=== PATIENT | female | born 1965 | race Caucasian/White ===

== ENCOUNTER 2016-12-18 13:31 | Observation (INO) | payer OTHER ==
[~2016-12-18] VITALS: Ht 157.5 cm; Wt 79.0 kg
[~2016-12-18 13:31] MED LIST: EXCEDRIN MIGRAINE PO; NITR1CAP33 PO
[2016-12-18] MEDS ORDERED: ONDANSETRON INJ 2 MG/ML 2 ML VIAL IV STA ×2 (14:07→17:09)
[2016-12-18] MEDS ORDERED: MoRPHine SULFATE 4 MG/ML 1 ML CARP\\VIAL IV STA (14:07)
[2016-12-18] MEDS ORDERED: OPTIRAY 320 IV PRN (14:30)
[2016-12-18 15:16] LABS: ISTAT CREATININE 0.8 mg/dl (0.6-1.3); ISTAT HEMOGLOBIN 13.6 g/dl (12.0-16.0); ISTAT IONIZED CALCIUM 1.1 mmol/l (1.12-1.32)
--- NOTE | 2016-12-18 15:29 | EMERGENCY ROOM VISIT NOTE ---
History First contact with patient: 13:59 Chief Complaint: FALL Stated Complaint: FALL History of Present Illness The patient is a 51 year old female who presents to the Emergency Room with complaints of "fall". The patient states that 1.5 hours prior to arrival, she was at a gas station attempting to pump gas, when she turned around and tripped on the cement, and fell against the car and in the pavement. There was positive loss of consciousness as identified by her family member. Ambulance was called, she was placed in a c-collar and brought here for evaluation. She notes pain in the right side of her face, jaw, right shoulder, right hip, and her low back. There is also right anterior chest pain following the injury. The patient rates her overall pain as an 8/10. She is unsure if she received pain medication in the ambulance. She denies chance of . Review of Systems A complete 10-point Review of Systems was discussed with the patient, with pertinent positives and negatives listed in the History of Present Illness. All remaining Review of Systems questions can be considered negative unless otherwise specified. Past Medical/Surgical History Medical Problems: (1) Chest pain (2) Neurogenic bladder No pertinent at this time. Family History No pertinent. Social History Smoking Status: Never Smoker Pt. lives locally Current/Historical Medications No Active Prescriptions or Reported Meds Physical Exam Vital Signs Date Time Temp Pulse Resp B/P (MAP) Pulse Ox O2 Delivery O2 Flow Rate FiO2 12/18/16 17:28 82 157/91 96 Room Air 12/18/16 16:01 85 20 173/104 95 Room Air 12/18/16 14:17 79 18 188/95 97 Room Air 12/18/16 13:41 81 12/18/16 13:34 37.0 90 18 204/118 98 Room Air 192/109 Physical Exam VITAL SIGNS - Vital signs and nursing notes were reviewed. Stable. GENERAL -51-year-old female appearing her stated age. Communicates well with provider and answers questions appropriately. SKIN - Gross examination of the entire body surface demonstrates no lacerations to the body surface. HEAD - Normocephalic, Atraumatic. No Zamora's Sign or Raccoon's Eyes. No depressed skull fractures palpable. EYES - PERRL with EOMI bilaterally. Without subconjunctival hemorrhage. Bulbar conjunctiva pink and moist with no injection. No hyphema. EARS - No deformities of external structures noted on gross examination bilaterally. No hemotympanum present. No tympanic perforation noted. Handle of malleus, umbo, cone of light, pars tensa/flaccid all easily visualized. NOSE - Midline and without cyanosis. No epistaxis or clear watery discharge noted. Septum midline without deviation. No septal hematoma noted. No overlying ecchymosis noted. MOUTH/OROPHARYNX - Without perioral cyanosis. Tongue midline with equal elevation of palate bilaterally. No blood noted in the oropharynx. No tonsillar hypertrophy, erythema, or exudates noted. No dental fractures noted. NECK - Cervical collar in place. No identifiable tenderness to palpation over the cervical spinous processes. No identifiable cervical paraspinal muscle tenderness noted. LUNGS - Chest wall symmetric without accessory muscle use, intercostals retractions, or central cyanosis. []No flail chest or depressed fractures noted. No paradoxical chest wall movements noted. There is tenderness to palpation across the anterior and posterior chest martin on the right. No tenderness with deep inspiration noted against the examiner's applied pressure to the lateral chest martin. Normal vesicular breath sounds CTA B/L. No wheezes, rales, or rhonchi appreciated. CARDIAC - RRR with S1/S2. No murmur, rubs, or gallops appreciated. ABDOMEN - Abdominal contour normal and without pulsations or visible masses. BS normoactive all four quadrants. No rebound tenderness or guarding noted. Negative Wickes's or Christiansen Winter's Signs. There is retroperitoneal tenderness. No tenderness, palpable masses, hepatosplenomegaly, or ascites noted. EXTREMITIES - No gross deformities noted of the extremities. There is tenderness to palpation overlying the patient's right shoulder, right posterior thoracic region, right side of her face, and right hip region. She is neurovascularly intact in the extremities. FROM with no tremors, fasciculations , or clonus noted on PROM throughout. +5/5 strength noted in UE/LE bilaterally. NEUROLOGIC - Cranial nerves II through XII grossly intact. Sensory intact to light touch throughout. PSYCH - A&Ox3 and cooperates fully with examiner. Pt is very pleasant and interacts well with examiner. Medical Decision & Procedures ER Provider Diagnostic Interpretation: HEAD WITHOUT CONTRAST (CT) CT DOSE: HISTORY: Trauma Fall, +LOC, head, face, neck and back pain TECHNIQUE: Multiaxial CT images of the head were performed without the use of intravenous contrast. A dose lowering technique was utilized adhering to the principles of ALARA. Comparison: None. Findings: The paranasal sinuses and mastoid air cells are clear. The calvarium and skull base are intact. The ventricles and sulci are within normal limits. There is no mass, hematoma, midline shift, or acute infarct. Impression: No acute intracranial abnormality. The above report was generated using voice recognition software. It may contain grammatical, syntax or spelling errors. Electronically signed by: Isidro Mansfield M.D. 12/18/2016 3:55 PM Dictated Date/Time: 12/18/2016 3:54 PM CERVICAL SPINE W/O CT DOSE: 2099.24 mGy.cm HISTORY: Trauma Fall, +LOC, head, face, neck and back pain TECHNIQUE: Multiaxial CT images of the cervical spine were performed and reformatted in the sagittal and coronal plane without the use of contrast. A dose lowering technique was utilized adhering to the principles of ALARA. COMPARISON: None. FINDINGS: Mild degenerative disc changes throughout. No evidence for compression deformity. Posterior elements are intact. No evidence for subluxation. C1-C2 complex is intact. IMPRESSION: No acute process. Mild degenerative change. The above report was generated using voice recognition software. It may contain grammatical, syntax or spelling errors. Electronically signed by: Isidro Mansfield M.D. 12/18/2016 3:50 PM Dictated Date/Time: 12/18/2016 3:[address] DOSE: HISTORY: Fall, +LOC, head, face, neck and back pain TECHNIQUE: Multiaxial CT images of the maxillofacial region were performed and reformatted in the coronal plane without the use of contrast. A dose lowering technique was utilized adhering to the principles of ALARA. COMPARISON: None. FINDINGS: The visualized cervical spine, skull base, pterygoid plates, nasal bones, lamina papyracea, orbital floors, mandible, and zygomatic arches are intact. No fractures. The orbits are unremarkable. Soft tissue swelling/contusion at the chin. IMPRESSION: No fractures within the maxillofacial region. Soft tissue swelling/contusion at the chin. Electronically signed by: Conor Arcos M.D. 12/18/2016 4:04 PM Dictated Date/Time: 12/18/2016 4:00 PM THORACIC SPINE WITHOUT CT DOSE: HISTORY: Trauma Fall, +LOC, head, face, neck and back pain TECHNIQUE: Multiaxial CT images of the thoracic spine were performed and reformatted in the sagittal and coronal plane without the use of contrast. A dose lowering technique was utilized adhering to the principles of ALARA. COMPARISON: None. FINDINGS: No fractures. No subluxation. Paraspinal soft tissues are unremarkable. Moderate degenerative disc change throughout. Mild reactive osteophytic change throughout. IMPRESSION: No acute process. The above report was generated using voice recognition software. It may contain grammatical, syntax or spelling errors. Electronically signed by: Isidro Mansfield M.D. 12/18/2016 4:02 PM Dictated Date/Time: 12/18/2016 4:[address] WITH CONTRAST CT DOSE: HISTORY: Trauma. Fall, +LOC, head, face, neck and back pain TECHNIQUE: Multiaxial CT images of the chest were performed following the intravenous administration of contrast. A dose lowering technique was utilized adhering to the principles of ALARA. COMPARISON: None. FINDINGS: The central airways are patent. The lungs are clear. No pleural effusions. No pneumothorax. No definite fractures within the visualized osseous structures. Mild irregularity at the anterior cortex of the manubrium. No mediastinal or hilar lymphadenopathy. The heart is normal in size. The mediastinal vascular structures are within normal limits. IMPRESSION: No definite acute traumatic process within the chest. Moderate irregularity at the anterior cortex of the manubrium. Recommend correlation for pain at this location to exclude the less likely possibility of a subtle nondisplaced fracture. There is no surrounding soft tissue swelling or hemorrhage to suggest an acute injury at this time. Electronically signed by: Conor Arcos M.D. 12/18/2016 4:00 PM Dictated Date/Time: 12/18/2016 3:53 PM LUMBAR SPINE WITHOUT CT DOSE: HISTORY: Trauma Fall, +LOC, head, face, neck and back pain TECHNIQUE: Multiaxial CT images of the lumbar spine were performed and reformatted in the sagittal and coronal plane without the use of contrast. A dose lowering technique was utilized adhering to the principles of ALARA. COMPARISON: None. FINDINGS: No fractures. No subluxation. Paraspinal soft tissues are unremarkable. Minimal degenerative disc change IMPRESSION: No fractures within the lumbar spine. Minimal degenerative change The above report was generated using voice recognition software. It may contain grammatical, syntax or spelling errors. Electronically signed by: Isidro Mansfield M.D. 12/18/2016 4:01 PM Dictated Date/Time: 12/18/2016 4:00 PM ABD/PELVIS IV CONTRAST ONLY CT DOSE: HISTORY: Pain. Trauma. Fall, +LOC, head, face, neck and back pain, hip pain TECHNIQUE: Multiaxial CT images of the abdomen and pelvis were performed following the use of intravenous contrast. A dose lowering technique was utilized adhering to the principles of ALARA. COMPARISON STUDY: None. FINDINGS: The lung bases are clear. The liver, spleen, gallbladder, pancreas, kidneys, and adrenal glands are within normal limits. No bowel wall thickening or obstruction. The pelvic organs are unremarkable. No suspicious lytic or blastic osseous lesions. IMPRESSION: No significant abnormality identified within the abdomen or pelvis. The above report was generated using voice recognition software. It may contain grammatical, syntax or spelling errors. Electronically signed by: Isidro Mansfield M.D. 12/18/2016 3:53 PM Dictated Date/Time: 12/18/2016 3:51 PM RIGHT HIP 2 VIEWS CLINICAL HISTORY: Right hip pain status post trauma COMPARISON: None. DISCUSSION: No fractures or dislocations are visualized. IMPRESSION: No fractures identified. Electronically signed by: Dileep Aranda M.D. 12/18/2016 5:04 PM Dictated Date/Time: 12/18/2016 5:04 PM Laboratory Results Test 12/18/16 15:02 Bedside Hemoglobin 13.6 g/dl (12.0-16.0) Bedside Hematocrit 40 % (37-47) Bedside Sodium 142 mEq/L (135-144) Bedside Potassium 3.9 mEq/L (3.3-5.0) Bedside Chloride 103 mEq/L (101-112) Bedside Total CO2 27 mEq/l (24-31) Bedside Blood Urea Nitrogen 18 mg/dl (7-18) Bedside Creatinine 0.8 mg/dl (0.6-1.3) Bedside Glucose (other) 94 mg/dl (70-99) Bedside Ionized Calcium (Christopher) 1.10 mmol/l (1.12-1.32) Medications Administered Medications (Trade) Dose Ordered Sig/Iona Route Start Time Stop Time Status Last Admin Dose Admin Morphine Sulfate (MoRPHine SULFATE INJ) 4 mg NOW STAT IV 12/18/16 14:07 12/18/16 14:11 DC 12/18/16 14:16 4 MG Ondansetron HCl (Zofran Inj) 4 mg NOW STAT IV 12/18/16 14:07 12/18/16 14:11 DC 12/18/16 14:16 4 MG Hydromorphone HCl (Dilaudid Inj) 1 mg NOW STAT IV 12/18/16 15:50 12/18/16 15:51 DC 12/18/16 15:59 1 MG Ondansetron HCl (Zofran Inj) 4 mg NOW STAT IV 12/18/16 17:09 12/18/16 17:10 DC 12/18/16 17:25 4 MG Promethazine HCl 12.5 mg/Sodium Chloride 50.5 ml @ 204 mls/hr NOW STAT IV 12/18/16 17:44 12/18/16 17:58 DC 12/18/16 18:21 204 MLS/HR Medical Decision Patient was seen and evaluated as above. She presents to us today with pain diffusely status post fall. Bedside EKG was obtained and reveals normal sinus rhythm. No ectopy or ischemic change. The patient notes that she tripped on the cement, therefore believe she likely had a mechanical fall. She has tenderness of the right jaw, right posterior shoulder/neck area, and low back. There is also some minimal chest tenderness, and breast bone tenderness. She was given morphine 4 mg for her pain followed by Zofran. I-STAT reveals no acute process. CBC reveals no acute process. Metabolic panel rules no evidence of kidney or liver failure. Benefits versus risk of obtaining imaging was discussed with the patient. Decision was made to obtain CTs and x-ray. Results as above. I was called by CT, the decision was made to add an abdomen and pelvis, rather than just the reconstructed images to see the patient from radiation. I believe that this is appropriate. No acute process noted other than she does have what appears to be questionable manubrial fracture. She is in quite a bit of pain, therefore was given 1 more milligram of Dilaudid. She was offered outpatient management versus inpatient, and preferred to stay for pain management. She is also vomiting. She was given more Zofran, followed by Phenergan and continues to vomit. This is likely secondary to her pain. Her vital signs have been stable here. I do not suspect any emergent process. Case was discussed with the attending physician, and subsequently the hospitalist. Please refer to further documentation regarding her stay. In evaluation and treatment of this patient the following differential diagnoses were entertained: Mechanical fall, fractures of multiple sites, contusion and multiple sites, among others. Impression Primary Impression: Fall Additional Impressions: Contusion of multiple sites Fracture of manubrium Departure Information Dispostion Admitted as an inpatient Condition FAIR Prescriptions No Active Prescriptions or Reported Meds Referrals No Doctor, Assigned (PCP) Patient Instructions [facility] Additional Instructions HEAD WITHOUT CONTRAST (CT) CT DOSE: HISTORY: Trauma Fall, +LOC, head, face, neck and back pain TECHNIQUE: Multiaxial CT images of the head were performed without the use of intravenous contrast. A dose lowering technique was utilized adhering to the principles of ALARA. Comparison: None. Findings: The paranasal sinuses and mastoid air cells are clear. The calvarium and skull base are intact. The ventricles and sulci are within normal limits. There is no mass, hematoma, midline shift, or acute infarct. Impression: No acute intracranial abnormality. The above report was generated using voice recognition software. It may contain grammatical, syntax or spelling errors. Electronically signed by: Isidro Mansfield M.D. 12/18/2016 3:55 PM Dictated Date/Time: 12/18/2016 3:54 PM CERVICAL SPINE W/O CT DOSE: 2099.24 mGy.cm HISTORY: Trauma Fall, +LOC, head, face, neck and back pain TECHNIQUE: Multiaxial CT images of the cervical spine were performed and reformatted in the sagittal and coronal plane without the use of contrast. A dose lowering technique was utilized adhering to the principles of ALARA. COMPARISON: None. FINDINGS: Mild degenerative disc changes throughout. No evidence for compression deformity. Posterior elements are intact. No evidence for subluxation. C1-C2 complex is intact. IMPRESSION: No acute process. Mild degenerative change. The above report was generated using voice recognition software. It may contain grammatical, syntax or spelling errors. Electronically signed by: Isidro Mansfield M.D. 12/18/2016 3:50 PM Dictated Date/Time: 12/18/2016 3:[address] DOSE: HISTORY: Fall, +LOC, head, face, neck and back pain TECHNIQUE: Multiaxial CT images of the maxillofacial region were performed and reformatted in the coronal plane without the use of contrast. A dose lowering technique was utilized adhering to the principles of ALARA. COMPARISON: None. FINDINGS: The visualized cervical spine, skull base, pterygoid plates, nasal bones, lamina papyracea, orbital floors, mandible, and zygomatic arches are intact. No fractures. The orbits are unremarkable. Soft tissue swelling/contusion at the chin. IMPRESSION: No fractures within the maxillofacial region. Soft tissue swelling/contusion at the chin. Electronically signed by: Conor Arcos M.D. 12/18/2016 4:04 PM Dictated Date/Time: 12/18/2016 4:00 PM THORACIC SPINE WITHOUT CT DOSE: HISTORY: Trauma Fall, +LOC, head, face, neck and back pain TECHNIQUE: Multiaxial CT images of the thoracic spine were performed and reformatted in the sagittal and coronal plane without the use of contrast. A dose lowering technique was utilized adhering to the principles of ALARA. COMPARISON: None. FINDINGS: No fractures. No subluxation. Paraspinal soft tissues are unremarkable. Moderate degenerative disc change throughout. Mild reactive osteophytic change throughout. IMPRESSION: No acute process. The above report was generated using voice recognition software. It may contain grammatical, syntax or spelling errors. Electronically signed by: Isidro Mansfield M.D. 12/18/2016 4:02 PM Dictated Date/Time: 12/18/2016 4:[address] WITH [address]AST CT DOSE: HISTORY: Trauma. Fall, +LOC, head, face, neck and back pain TECHNIQUE: Multiaxial CT images of the chest were performed following the intravenous administration of contrast. A dose lowering technique was utilized adhering to the principles of ALARA. COMPARISON: None. FINDINGS: The central airways are patent. The lungs are clear. No pleural effusions. No pneumothorax. No definite fractures within the visualized osseous structures. Mild irregularity at the anterior cortex of the manubrium. No mediastinal or hilar lymphadenopathy. The heart is normal in size. The mediastinal vascular structures are within normal limits. IMPRESSION: No definite acute traumatic process within the chest. Moderate irregularity at the anterior cortex of the manubrium. Recommend correlation for pain at this location to exclude the less likely possibility of a subtle nondisplaced fracture. There is no surrounding soft tissue swelling or hemorrhage to suggest an acute injury at this time. Electronically signed by: Conor Arcos M.D. 12/18/2016 4:00 PM Dictated Date/Time: 12/18/2016 3:53 PM LUMBAR SPINE WITHOUT CT DOSE: HISTORY: Trauma Fall, +LOC, head, face, neck and back pain TECHNIQUE: Multiaxial CT images of the lumbar spine were performed and reformatted in the sagittal and coronal plane without the use of contrast. A dose lowering technique was utilized adhering to the principles of ALARA. COMPARISON: None. FINDINGS: No fractures. No subluxation. Paraspinal soft tissues are unremarkable. Minimal degenerative disc change IMPRESSION: No fractures within the lumbar spine. Minimal degenerative change The above report was generated using voice recognition software. It may contain grammatical, syntax or spelling errors. Electronically signed by: Isidro Mansfield M.D. 12/18/2016 4:01 PM Dictated Date/Time: 12/18/2016 4:00 PM ABD/PELVIS IV CONTRAST ONLY CT DOSE: HISTORY: Pain. Trauma. Fall, +LOC, head, face, neck and back pain, hip pain TECHNIQUE: Multiaxial CT images of the abdomen and pelvis were performed following the use of intravenous contrast. A dose lowering technique was utilized adhering to the principles of ALARA. COMPARISON STUDY: None. FINDINGS: The lung bases are clear. The liver, spleen, gallbladder, pancreas, kidneys, and adrenal glands are within normal limits. No bowel wall thickening or obstruction. The pelvic organs are unremarkable. No suspicious lytic or blastic osseous lesions. IMPRESSION: No significant abnormality identified within the abdomen or pelvis. The above report was generated using voice recognition software. It may contain grammatical, syntax or spelling errors. Electronically signed by: Isidro Mansfield M.D. 12/18/2016 3:53 PM Dictated Date/Time: 12/18/2016 3:51 PM RIGHT HIP 2 VIEWS CLINICAL HISTORY: Right hip pain status post trauma COMPARISON: None. DISCUSSION: No fractures or dislocations are visualized. IMPRESSION: No fractures identified. Electronically signed by: Dileep Aranda M.D. 12/18/2016 5:04 PM Dictated Date/Time: 12/18/2016 5:04 PM Problem Qualifiers
[2016-12-18] MEDS ORDERED: HYDROmorphone INJ 1 MG/ML SYR IV STA (15:50)
--- NOTE | 2016-12-18 15:51 | DIAGNOSTIC IMAGING REPORT ---
CERVICAL SPINE W/O CT DOSE: 2099.24 mGy.cm HISTORY: Trauma Fall, +LOC, head, face, neck and back pain TECHNIQUE: Multiaxial CT images of the cervical spine were performed and reformatted in the sagittal and coronal plane without the use of contrast. A dose lowering technique was utilized adhering to the principles of ALARA. COMPARISON: None. FINDINGS: Mild degenerative disc changes throughout. No evidence for compression deformity. Posterior elements are intact. No evidence for subluxation. C1-C2 complex is intact. IMPRESSION: No acute process. Mild degenerative change. The above report was generated using voice recognition software. It may contain grammatical, syntax or spelling errors. Electronically signed by: Isidro Mansfield M.D. 12/18/2016 3:50 PM Dictated Date/Time: 12/18/2016 3:48 PM
--- NOTE | 2016-12-18 15:55 | DIAGNOSTIC IMAGING REPORT ---
ABD/PELVIS IV CONTRAST ONLY CT DOSE: HISTORY: Pain. Trauma. Fall, +LOC, head, face, neck and back pain, hip pain TECHNIQUE: Multiaxial CT images of the abdomen and pelvis were performed following the use of intravenous contrast. A dose lowering technique was utilized adhering to the principles of ALARA. COMPARISON STUDY: None. FINDINGS: The lung bases are clear. The liver, spleen, gallbladder, pancreas, kidneys, and adrenal glands are within normal limits. No bowel wall thickening or obstruction. The pelvic organs are unremarkable. No suspicious lytic or blastic osseous lesions. IMPRESSION: No significant abnormality identified within the abdomen or pelvis. The above report was generated using voice recognition software. It may contain grammatical, syntax or spelling errors. Electronically signed by: Isidro Mansfield M.D. 12/18/2016 3:53 PM Dictated Date/Time: 12/18/2016 3:51 PM
--- NOTE | 2016-12-18 15:56 | DIAGNOSTIC IMAGING REPORT ---
HEAD WITHOUT CONTRAST (CT) CT DOSE: HISTORY: Trauma Fall, +LOC, head, face, neck and back pain TECHNIQUE: Multiaxial CT images of the head were performed without the use of intravenous contrast. A dose lowering technique was utilized adhering to the principles of ALARA. Comparison: None. Findings: The paranasal sinuses and mastoid air cells are clear. The calvarium and skull base are intact. The ventricles and sulci are within normal limits. There is no mass, hematoma, midline shift, or acute infarct. Impression: No acute intracranial abnormality. The above report was generated using voice recognition software. It may contain grammatical, syntax or spelling errors. Electronically signed by: Isidro Mansfield M.D. 12/18/2016 3:55 PM Dictated Date/Time: 12/18/2016 3:54 PM
--- NOTE | 2016-12-18 16:01 | DIAGNOSTIC IMAGING REPORT ---
CHEST CT WITH CONTRAST CT DOSE: HISTORY: Trauma. Fall, +LOC, head, face, neck and back pain TECHNIQUE: Multiaxial CT images of the chest were performed following the intravenous administration of contrast. A dose lowering technique was utilized adhering to the principles of ALARA. COMPARISON: None. FINDINGS: The central airways are patent. The lungs are clear. No pleural effusions. No pneumothorax. No definite fractures within the visualized osseous structures. Mild irregularity at the anterior cortex of the manubrium. No mediastinal or hilar lymphadenopathy. The heart is normal in size. The mediastinal vascular structures are within normal limits. IMPRESSION: No definite acute traumatic process within the chest. Moderate irregularity at the anterior cortex of the manubrium. Recommend correlation for pain at this location to exclude the less likely possibility of a subtle nondisplaced fracture. There is no surrounding soft tissue swelling or hemorrhage to suggest an acute injury at this time. Electronically signed by: Conor Arcos M.D. 12/18/2016 4:00 PM Dictated Date/Time: 12/18/2016 3:53 PM
--- NOTE | 2016-12-18 16:02 | DIAGNOSTIC IMAGING REPORT ---
LUMBAR SPINE WITHOUT CT DOSE: HISTORY: Trauma Fall, +LOC, head, face, neck and back pain TECHNIQUE: Multiaxial CT images of the lumbar spine were performed and reformatted in the sagittal and coronal plane without the use of contrast. A dose lowering technique was utilized adhering to the principles of ALARA. COMPARISON: None. FINDINGS: No fractures. No subluxation. Paraspinal soft tissues are unremarkable. Minimal degenerative disc change IMPRESSION: No fractures within the lumbar spine. Minimal degenerative change The above report was generated using voice recognition software. It may contain grammatical, syntax or spelling errors. Electronically signed by: Isidro Mansfield M.D. 12/18/2016 4:01 PM Dictated Date/Time: 12/18/2016 4:00 PM
--- NOTE | 2016-12-18 16:04 | DIAGNOSTIC IMAGING REPORT ---
THORACIC SPINE WITHOUT CT DOSE: HISTORY: Trauma Fall, +LOC, head, face, neck and back pain TECHNIQUE: Multiaxial CT images of the thoracic spine were performed and reformatted in the sagittal and coronal plane without the use of contrast. A dose lowering technique was utilized adhering to the principles of ALARA. COMPARISON: None. FINDINGS: No fractures. No subluxation. Paraspinal soft tissues are unremarkable. Moderate degenerative disc change throughout. Mild reactive osteophytic change throughout. IMPRESSION: No acute process. The above report was generated using voice recognition software. It may contain grammatical, syntax or spelling errors. Electronically signed by: Isidro Mansfield M.D. 12/18/2016 4:02 PM Dictated Date/Time: 12/18/2016 4:01 PM
--- NOTE | 2016-12-18 16:06 | DIAGNOSTIC IMAGING REPORT ---
MAXILLOFACIAL CT CT DOSE: HISTORY: Fall, +LOC, head, face, neck and back pain TECHNIQUE: Multiaxial CT images of the maxillofacial region were performed and reformatted in the coronal plane without the use of contrast. A dose lowering technique was utilized adhering to the principles of ALARA. COMPARISON: None. FINDINGS: The visualized cervical spine, skull base, pterygoid plates, nasal bones, lamina papyracea, orbital floors, mandible, and zygomatic arches are intact. No fractures. The orbits are unremarkable. Soft tissue swelling/contusion at the chin. IMPRESSION: No fractures within the maxillofacial region. Soft tissue swelling/contusion at the chin. Electronically signed by: Conor Arcos M.D. 12/18/2016 4:04 PM Dictated Date/Time: 12/18/2016 4:00 PM
--- NOTE | 2016-12-18 17:06 | DIAGNOSTIC IMAGING REPORT ---
RIGHT HIP 2 VIEWS CLINICAL HISTORY: Right hip pain status post trauma COMPARISON: None. DISCUSSION: No fractures or dislocations are visualized. IMPRESSION: No fractures identified. Electronically signed by: Dileep Aranda M.D. 12/18/2016 5:04 PM Dictated Date/Time: 12/18/2016 5:04 PM
[2016-12-18] MEDS ORDERED: PROMETHAZINE HCL INJ 12.5 MG in SODIUM CHLORIDE 0.9% 50ML 50 ML IV STA (17:44)
[2016-12-18] MEDS ORDERED: SODIUM CHLORIDE 0.9% 1000ML 1,000 ML IV SCH (18:29)
[2016-12-18] MEDS ORDERED: ACETAMINOPHEN 325 MG TAB PO PRN (18:30)
[2016-12-18] MEDS ORDERED: ONDANSETRON INJ 2 MG/ML 2 ML VIAL IV PRN (18:30)
[2016-12-18] MEDS ORDERED: HYDROmorphone INJ 0.5 MG/0.5 ML SYR IV PRN (18:45)
[2016-12-18 19:53] VITALS: BP_SYST 162; BP_SYST 207; BP_DIAS 104; BP_DIAS 67; PULSE 85; TEMP 36.9; O2SAT 96; Ht 157.5 cm; Wt 79.0 kg
[2016-12-18 19:56] LABS: BASO % 0.2 %; BASO ABS # 0.02 K/uL (0-0.2); COMPLETE YES; EOS % 0.5 %; HEMATOCRIT 43.2 % (37-47); IG% 0.4 %; LYMPH % 8.4 %; LYMPH ABS # 0.77 K/uL (1.2-3.4); MEAN CELL VOLUME 86.7 fL (80-100); MEAN CORPUSCULAR HEMOGLOBIN 29.3 pg (25-34); MEAN CORPUSCULAR HGB CONC 33.8 g/dl (32-36); MEAN PLATELET VOLUME 10.2 fL (7.4-10.4); MONO % 4.2 %; NEUT % 86.3 %; PLATELET COUNT 214 K/uL (130-400); RED BLOOD COUNT 4.98 M/uL (4.2-5.4); WHITE BLOOD COUNT 9.19 K/uL (4.8-10.8)
[2016-12-18] MEDS ORDERED: IV FLUIDS COMPLETED PRN (20:15)
[2016-12-18 20:22] LABS: BUN/CREATININE RATIO 17.4 (10-20); CALCIUM 8.9 mg/dl (8.5-10.1); CREATININE 0.89 mg/dl (0.60-1.20)
[2016-12-18 20:25] LABS: ALB/GLOB RATIO 1.1 (0.9-2)
[2016-12-18] MEDS ORDERED: LABETALOL HCL IV 5 MG/ML 20ML IV STA (20:29)
[2016-12-18] MEDS ORDERED: D5W AND NSS 1,000 ML IV SCH (20:45)
[2016-12-18] MEDS ORDERED: ENALAPRILAT IV 0.625 MG in DEXTROSE 5% 25ML 25 ML IV PRN (20:45)
[2016-12-18 20:54] VITALS: BP 140/86
[2016-12-18] MEDS: HYDROCODONE/ACETAMOPHEN 5/325MG TAB PO PRN (21:52)
[2016-12-18 22:20] LABS: BENZODIAZEPINE, URINE NEG (NEG); COCAINE,URINE NEG (NEG); PHENCYCLIDINE, URINE NEG (NEG)
--- NOTE | 2016-12-18 22:22 | History and Physical ---
History & Physical Date & Time of Service: Dec 18, 2016 at 22:09 Chief Complaint: Chest Pain Primary Care Physician: No Doctor, Assigned History of Present Illness Source: patient, family, clinic records, hospital records 51 year old female with no known past medical history presenting with fall. Patient was in gas station putting gas, tripped and fell on cement ground, right side first. Daughter saw her fall, went to her and patient was not responding until after 30 seconds. 911 called and she was taken to the ER. Per family, they have witnessed the patient in the ER "shaking" with her eyes close for about 10 minutes. Patient seemingly confused after but slowly returned to being oriented although very lethargic. CT head negative, CT unrevealing except for possible nondisplaced sternal fracture. On my exam, patient was drowsy but was oriented x 2, follows all commands. Reports pain on the right side of the face, right side of the chest and right hip. Denies headache, nausea, changes with vision, focal deficits, dyspnea. No other symptoms. Social History Smoking Status: Never Smoker Smokeless Tobacco Use: No Alcohol Use: none Drug Use: none Marital Status: Housing status: lives with family Immunizations History of Influenza Vaccine: No History of Tetanus Vaccine?: Yes Tetanus Immunization Date: Jun 27, 2008 History of Pneumococcal: No History of Hepatitis B Vaccine: No Allergies Coded Allergies: Clindamycin (Verified Allergy, Intermediate, RASH, 12/18/16) Sulfa Antibiotics (Verified Allergy, Intermediate, RASH, 12/18/16) Home Medications No Active Prescriptions or Reported Meds Review of Systems Constitutional- no fever; no weight loss Eyes- no acute visual changes ENT- no sinus drainage; no pharyngitis Pulmonary- no cough, no wheezing, no shortness of breath Cardiac- (+) R chest pain, no palpitations, no orthopnea, no dependent edema GI- no nausea, no vomiting, no diarrhea, no melena, no hematochezia - no dysuria, no hematuria Musculoskeletal- (+) as noted above Derm- no rashes, no new skin lesions, no changing skin lesions Hematologic- no unusual bruising, no unusual bleeding Lymphatics- no adenopathy Endocrine- no polyuria or polydipsia; no heat or cold intolerance Neuro- no headaches, no focal neurologic symptoms Psych- no anxiety, no depression Physical Exam Vital Signs Date Time Temp Pulse Resp B/P (MAP) Pulse Ox O2 Delivery O2 Flow Rate FiO2 12/18/16 20:54 140/86 (104) 12/18/16 19:53 36.9 85 22 207/104 96 Room Air 162/67 12/18/16 19:06 37.0 82 20 157/91 96 12/18/16 17:28 82 157/91 96 Room Air 12/18/16 16:01 85 20 173/104 95 Room Air 12/18/16 14:17 79 18 188/95 97 Room Air 12/18/16 13:41 81 12/18/16 13:34 37.0 90 18 204/118 98 Room Air 192/109 General Appearance: WD/WN, no apparent distress Head: + pertinent finding ((+) hematoma on the chin, right side) Eyes: normal inspection, PERRL, EOMI, sclerae normal ENT: normal ENT inspection, hearing grossly normal, pharynx normal Neck: supple, no adenopathy, thyroid normal, no JVD, trachea midline Respiratory/Chest: chest non-tender, lungs clear, normal breath sounds, no respiratory distress, no accessory muscle use Cardiovascular: regular rate, rhythm, no edema, no gallop, no JVD, no murmur, normal peripheral pulses Abdomen/GI: normal bowel sounds, non tender, soft, no organomegaly Back: normal inspection, no CVA tenderness Extremities/Musculoskelatal: normal inspection, no calf tenderness, no pedal edema Neurologic/Psych: terminal gauger II-XII nml as tested, no motor/sensory deficits, normal mood/affect, oriented x 3, + pertinent finding (somewhat drowsy) Skin: normal color, warm/dry, no rash Lymphatic: no adenopathy Diagnostics Laboratory Results Results Past 24 Hours Test 12/18/16 15:02 12/18/16 19:44 12/18/16 21:50 Range/Units Bedside Hemoglobin 13.6 12.0-16.0 g/dl Bedside Hematocrit 40 37-47 % Bedside Sodium 142 135-144 mEq/L Bedside Potassium 3.9 3.3-5.0 mEq/L Bedside Chloride 103 101-112 mEq/L Bedside Total CO2 27 24-31 mEq/l Anion Gap 16.0 5.0 3-11 mmol/L Bedside Blood Urea Nitrogen 18 7-18 mg/dl Bedside Creatinine 0.8 0.6-1.3 mg/dl Bedside Glucose (other) 94 70-99 mg/dl Bedside Ionized Calcium (Christopher) 1.10 1.12-1.32 mmol/l White Blood Count 9.19 4.8-10.8 K/uL Red Blood Count 4.98 4.2-5.4 M/uL Hemoglobin 14.6 12.0-16.0 g/dL Hematocrit 43.2 37-47 % Mean Corpuscular Volume 86.7 80-100 fL Mean Corpuscular Hemoglobin 29.3 25-34 pg Mean Corpuscular Hemoglobin Concent 33.8 32-36 g/dl Platelet Count 214 130-400 K/uL Mean Platelet Volume 10.2 7.4-10.4 fL Neutrophils (%) (Auto) 86.3 % Lymphocytes (%) (Auto) 8.4 % Monocytes (%) (Auto) 4.2 % Eosinophils (%) (Auto) 0.5 % Basophils (%) (Auto) 0.2 % Neutrophils # (Auto) 7.92 1.4-6.5 K/uL Lymphocytes # (Auto) 0.77 1.2-3.4 K/uL Monocytes # (Auto) 0.39 0.11-0.59 K/uL Eosinophils # (Auto) 0.05 0-0.5 K/uL Basophils # (Auto) 0.02 0-0.2 K/uL RDW Standard Deviation 41.9 36.4-46.3 fL RDW Coefficient of Variation 13.3 11.5-14.5 % Immature Granulocyte % (Auto) 0.4 % Immature Granulocyte # (Auto) 0.04 0.00-0.02 K/uL Sodium Level 142 136-145 mmol/L Potassium Level 4.0 3.5-5.1 mmol/L Chloride Level 106 98-107 mmol/L Carbon Dioxide Level 31 21-32 mmol/L Blood Urea Nitrogen 15 7-18 mg/dl Creatinine 0.89 0.60-1.20 mg/dl Est Creatinine Clear Calc Drug Dose 70.1 ml/min Estimated GFR () 86.4 Estimated GFR (Non- 74.5 BUN/Creatinine Ratio 17.4 10-20 Random Glucose 106 70-99 mg/dl Calcium Level 8.9 8.5-10.1 mg/dl Total Bilirubin 0.7 0.2-1 mg/dl Aspartate Amino Transf (AST/SGOT) 13 15-37 U/L Alanine Aminotransferase (ALT/SGPT) 24 12-78 U/L Alkaline Phosphatase 83 45-117 U/L Total Protein 7.3 6.4-8.2 gm/dl Albumin 3.8 3.4-5.0 gm/dl Globulin 3.5 2.5-4.0 gm/dl Albumin/Globulin Ratio 1.1 0.9-2 Hepatitis C Antibody Screen NEG NEG Diagnostic Radiology per H&P EKG HR 80 NSR no ischemia infarct Impression Assessment and Plan 51 year old female with no known past medical history presenting with fall. POSSIBLE CONCUSSION, WITH SEIZURE S/P FALL - CT head unrevealing - NPO for now Seizure precautions - consult Neurology RIGHT SIDED CHEST PAIN STERNAL FRACTURE? - PRN Dilaudid, Percocet monitor HYPERTENSION - no history of HTN - Labetalol and PRN Enalaprilat ordered DVT PROPHYLAXIS SCDS Full code per patient Dispo anticipate d/c home when medically stable Advanced Directives Existing Living Will: No Existing Power of Liquefaction Supervisor: No VTE Prophylaxis VTE Risk Assessment Done? Y/N: Yes Risk Level: Moderate Given or contraindicated: SCD's
[2016-12-18 23:58] VITALS: BP 168/92; PULSE 71; TEMP 36.8; O2SAT 96
[2016-12-19] VITALS (16 sets, daily range): BP systolic 150–199; BP diastolic 79–100; PULSE 60–83; TEMP 36.7–36.8; O2SAT 95–98
[2016-12-19 07:00] LABS: BASO % 0.5 %; BASO ABS # 0.03 K/uL (0-0.2); COMPLETE YES; EOS % 2.3 %; HEMATOCRIT 41.2 % (37-47); IG% 0.3 %; LYMPH % 27.2 %; LYMPH ABS # 1.67 K/uL (1.2-3.4); MEAN CELL VOLUME 86.4 fL (80-100); MEAN CORPUSCULAR HEMOGLOBIN 28.7 pg (25-34); MEAN CORPUSCULAR HGB CONC 33.3 g/dl (32-36); MEAN PLATELET VOLUME 10.1 fL (7.4-10.4); MONO % 7.7 %; PLATELET COUNT 211 K/uL (130-400); RED BLOOD COUNT 4.77 M/uL (4.2-5.4); WHITE BLOOD COUNT 6.14 K/uL (4.8-10.8)
[2016-12-19 07:32] LABS: BUN/CREATININE RATIO 17.1 (10-20); CALCIUM 8.6 mg/dl (8.5-10.1); CREATININE 0.82 mg/dl (0.60-1.20)
[2016-12-19] MEDS: LABETALOL HCL IV 5 MG/ML 20ML IV PRN ×2 (08:08→13:15)
[2016-12-19] MEDS: HYDROCODONE/ACETAMOPHEN 5/325MG TAB PO PRN (09:20)
[2016-12-19] MEDS ORDERED: TRAMADOL HCL 50 MG TAB PO ONE (10:59)
[2016-12-19] MEDS ORDERED: LIDODERM (LIDOCAINE) PATCH 5% TD ONE (10:59)
[2016-12-19] MEDS ORDERED: AMLODIPINE BESYLATE 5 MG TAB PO ONE ×3 (11:00→18:30)
[2016-12-19] MEDS ORDERED: TRAMADOL HCL 50 MG TAB PO PRN (11:00)
--- NOTE | 2016-12-19 11:14 | Progress Note ---
Medicine Progress Note Date & Time of Visit: Dec 19, 2016 at 11:05. Subjective patient seen resting in bed, Alexander at bedside alert, awake, oriented x 3 states she is having right sided, throbbing headache- reminiscent of her usual migraine headaches, denies nausea/changes with vision/photophobia denies any focal weakness or numbness has pain mostly on her chin- right side and lower back, radiating to the rip hip - no problems ambulating denies chest pain, dyspnea, dizziness, palpitations, abdominal pain, changes with BM or urination no other symptoms Objective Last 8 Hrs Date Time Temp Pulse Resp B/P (MAP) Pulse Ox O2 Delivery O2 Flow Rate FiO2 12/19/16 10:55 83 186/99 (128) 12/19/16 10:18 67 187/100 (129) 96 12/19/16 08:20 75 15 165/86 (112) 97 Room Air 12/19/16 08:05 67 199/92 (127) 12/19/16 08:00 96 Room Air 12/19/16 07:46 36.7 66 16 177/95 (122) 98 Room Air 12/19/16 04:00 36.7 60 22 173/93 (119) 97 Room Air 12/19/16 04:00 Room Air Physical Exam: General- oriented x 3, not in distress, speaks in sentences with no effort Head- no obvious injury except for hematoma on the right chin Eyes- EOMI, anicteric ENT- oropharynx clear Neck- supple, no JVD, no adenopathy, no thyromegaly Lungs- clear breath sounds bilaterally, no rales/wheezes Heart- regular rhythm; no murmur, normal rate Abdomen- normal bowel sounds, soft, nontender Extremities- no pretibial edema, no calf tenderness Back- no edema/erythema/hematoma/tenderness Neuro- alert, oriented x 3; no gross focal deficits Skin- warm & dry Laboratory Results: Last 24 Hours Test 12/18/16 15:02 12/18/16 19:44 12/18/16 21:50 12/19/16 06:30 Bedside Hemoglobin 13.6 g/dl Bedside Hematocrit 40 % Bedside Sodium 142 mEq/L Bedside Potassium 3.9 mEq/L Bedside Chloride 103 mEq/L Bedside Total CO2 27 mEq/l Anion Gap 16.0 mmol/L 5.0 mmol/L 6.0 mmol/L Bedside Blood Urea Nitrogen 18 mg/dl Bedside Creatinine 0.8 mg/dl Bedside Glucose (other) 94 mg/dl Bedside Ionized Calcium (Christopher) 1.10 mmol/l White Blood Count 9.19 K/uL 6.14 K/uL Red Blood Count 4.98 M/uL 4.77 M/uL Hemoglobin 14.6 g/dL 13.7 g/dL Hematocrit 43.2 % 41.2 % Mean Corpuscular Volume 86.7 fL 86.4 fL Mean Corpuscular Hemoglobin 29.3 pg 28.7 pg Mean Corpuscular Hemoglobin Concent 33.8 g/dl 33.3 g/dl Platelet Count 214 K/uL 211 K/uL Mean Platelet Volume 10.2 fL 10.1 fL Neutrophils (%) (Auto) 86.3 % 62.0 % Lymphocytes (%) (Auto) 8.4 % 27.2 % Monocytes (%) (Auto) 4.2 % 7.7 % Eosinophils (%) (Auto) 0.5 % 2.3 % Basophils (%) (Auto) 0.2 % 0.5 % Neutrophils # (Auto) 7.92 K/uL 3.81 K/uL Lymphocytes # (Auto) 0.77 K/uL 1.67 K/uL Monocytes # (Auto) 0.39 K/uL 0.47 K/uL Eosinophils # (Auto) 0.05 K/uL 0.14 K/uL Basophils # (Auto) 0.02 K/uL 0.03 K/uL RDW Standard Deviation 41.9 fL 42.3 fL RDW Coefficient of Variation 13.3 % 13.4 % Immature Granulocyte % (Auto) 0.4 % 0.3 % Immature Granulocyte # (Auto) 0.04 K/uL 0.02 K/uL Sodium Level 142 mmol/L 143 mmol/L Potassium Level 4.0 mmol/L 4.0 mmol/L Chloride Level 106 mmol/L 107 mmol/L Carbon Dioxide Level 31 mmol/L 30 mmol/L Blood Urea Nitrogen 15 mg/dl 14 mg/dl Creatinine 0.89 mg/dl 0.82 mg/dl Est Creatinine Clear Calc Drug Dose 70.1 ml/min 78.2 ml/min Estimated GFR () 86.4 95.4 Estimated GFR (Non- 74.5 82.3 BUN/Creatinine Ratio 17.4 17.1 Random Glucose 106 mg/dl 96 mg/dl Calcium Level 8.9 mg/dl 8.6 mg/dl Total Bilirubin 0.7 mg/dl Aspartate Amino Transf (AST/SGOT) 13 U/L Alanine Aminotransferase (ALT/SGPT) 24 U/L Alkaline Phosphatase 83 U/L Total Protein 7.3 gm/dl Albumin 3.8 gm/dl Globulin 3.5 gm/dl Albumin/Globulin Ratio 1.1 Hepatitis C Antibody Screen NEG Urine Opiates Screen POS Urine Methadone, Qualitative NEG Urine Barbiturates NEG Urine Phencyclidine (PCP) Level NEG Ur Amphetamine/Methamphetamine NEG MDMA (Ecstasy) Screen NEG Urine Benzodiazepines Screen NEG Urine Cocaine Metabolite NEG Urine Marijuana (THC) NEG Assessment & Plan 51 year old female with no known past medical history, last saw PCP 7 years ago , presenting with fall. POSSIBLE CONCUSSION, WITH SEIZURE S/P FALL - CT head unrevealing - reports right sided headache today, likely migraine repeat CT head - PRN Tramadol, Percocet, Dilaudid start PRN NSAIDs when repeat CT head is negative for bleed - resume diet Seizure precautions - consulted Neurology HYPERTENSIVE URGENCY - no history of HTN in the past - will slowly lower blood pressure start Amlodipine 5mg po, observe BP thru the day, may need additional BP meds , goal today is systolic 130-140s LOW BACK PAIN RADIATING TO THE RIGHT - CT lumbar spine: no fracture - check CT hip to r/o fracture - Lidoderm patch PRN Tramadol, [place], Dilaudid NSAIDs PRN if CT head negative for bleed RIGHT SIDED CHEST PAIN POSSIBLE CORTICAL STERNAL FRACTURE - PRN Dilaudid, Percocet - improving DVT PROPHYLAXIS SCDS Full code per patient Dispo anticipate d/c home when medically stable Current Inpatient Medications: Current Inpatient Medications Medications (Trade) Dose Ordered Sig/Iona Route Start Time Stop Time Status Last Admin Dose Admin Ioversol (Optiray 320) 111 ml UD PRN IV 12/18/16 14:30 12/22/16 14:29 Acetaminophen (Tylenol Tab) 650 mg Q4H PRN PO 12/18/16 18:30 01/17/17 18:29 Ondansetron HCl (Zofran Inj) 4 mg Q6H PRN IV 12/18/16 18:30 01/17/17 18:29 Hydromorphone HCl (Dilaudid Inj) 0.5 mg Q4H PRN IV 12/18/16 18:45 01/01/17 18:44 Acetaminophen/ Hydrocodone Bitart ([place] 5/325 Tab) 1 tab Q4H PRN PO 12/18/16 18:45 01/01/17 18:44 12/19/16 09:20 1 TAB Miscellaneous (Iv Fluids Completed) 1 ea PRN PRN N/A 12/18/16 20:15 12/18/17 20:14 Enalaprilat 0.625 mg/Dextrose 25.5 ml @ 100 mls/hr Q6H PRN IV 12/18/16 20:45 01/17/17 20:44 12/19/16 10:33 100 MLS/HR Dextrose/Sodium Chloride 1,000 ml @ 60 mls/hr [id number] IV 12/18/16 20:45 01/17/17 20:44 12/18/16 20:52 60 MLS/HR Labetalol HCl (Normodyne IV) 10 mg Q1H PRN IV 12/18/16 21:45 01/17/17 21:44 12/19/16 08:08 10 MG
--- NOTE | 2016-12-19 13:13 | DIAGNOSTIC IMAGING REPORT ---
HEAD CT NONCONTRAST CT DOSE: 638.56 mGycm HISTORY: Trauma. Fall. Headache. TECHNIQUE: Multiaxial CT images of the head were performed without the use of intravenous contrast. Automated exposure control was utilized for this study. A dose lowering technique was utilized adhering to the principles of ALARA. Comparison: Head CT 12/18/2016. Findings: The paranasal sinuses and mastoid air cells are clear. The calvarium and skull base are intact. The ventricles and sulci are within normal limits. There is no mass, hematoma, midline shift, or acute infarct. Impression: No acute intracranial abnormality. Electronically signed by: Conor Arcos M.D. 12/19/2016 1:12 PM Dictated Date/Time: 12/19/2016 1:09 PM
--- NOTE | 2016-12-19 13:16 | DIAGNOSTIC IMAGING REPORT ---
R HIP-LOWER EXTREMITY WITHOUT HISTORY: 51 years-old Female S/P FALL, R/O FRACTURE acute right-sided hip pain status post fall. COMPARISON: Right hip radiographs 12/18/2016 TECHNIQUE: Multiple axial CT images of the right lower extremity were obtained without contrast. A dose lowering technique was used consistent with the principals of HUMZA. FINDINGS: Right femoral acetabular joint is located with minimal joint space narrowing and marginal spurring. No acute fracture or dislocation identified. The imaged right hemipelvis is intact. No acute fracture or dislocation identified. Bone mineralization is within normal limits. Imaged intrapelvic structures demonstrate no focal abnormality. Soft tissues are unremarkable. IMPRESSION: Mild right hip osteoarthritis without acute fracture or subluxation. The above report was generated using voice recognition software. It may contain grammatical, syntax or spelling errors. Electronically signed by: Eliseo Bowen M.D. 12/19/2016 1:14 PM Dictated Date/Time: 12/19/2016 1:10 PM
--- NOTE | 2016-12-19 14:24 | Neurology Consultation ---
Neurology Consultation Date of Consultation: Dec 19, 2016. Attending Physician: Ted Ley MD Primary Care Physician: No Doctor, Assigned Reason for Consultation: possible seizure History of Present Illness Source: patient, parent, spouse, hospital records Kera is a 51 year old female with history of kidney stones and migraine headaches. She was at a gas station pumping gas, tripped and fell on cement ground. She states she remembers catching her foot on something prior to going down. Her daughter was with her and saw her fall. She lost conscience and does not remember anything until a police office was temple her head and then she remembers being in the ED. 911 called and she was taken to the ED. There was a witnessed "shaking" with her eyes close for about 10 minutes in the ED. She was confused but was slowly returning to baseline. CT head negative all other imaging has been normal accept the CT chest for possible nondisplaced sternal fracture. She has no history of seizure and there is no seizure family history. She does not drink or smoke cigs, no drug history. denies vision changes, swallowing issues, CP, accept at sternum, weakness, numbness tingling, +headache, chin pain , pain from mid back to right hip. Past Medical/Surgical History Medical Problems: (1) Contusion of multiple sites Status: Acute (2) Fall Status: Acute (3) Fracture of manubrium Status: Acute Social History Smoking Status: Never smoker Smokeless Tobacco Use: No Alcohol Use: none Drug Use: none Marital Status: Occupation Status: employed Allergies Coded Allergies: Clindamycin (Verified Allergy, Intermediate, RASH, 12/18/16) Sulfa Antibiotics (Verified Allergy, Intermediate, RASH, 12/18/16) Current Inpatient Medications Current Inpatient Medications Medications (Trade) Dose Ordered Sig/Iona Route Start Time Stop Time Status Last Admin Dose Admin Ioversol (Optiray 320) 111 ml UD PRN IV 12/18/16 14:30 12/22/16 14:29 Acetaminophen (Tylenol Tab) 650 mg Q4H PRN PO 12/18/16 18:30 01/17/17 18:29 Ondansetron HCl (Zofran Inj) 4 mg Q6H PRN IV 12/18/16 18:30 01/17/17 18:29 12/19/16 13:57 4 MG Hydromorphone HCl (Dilaudid Inj) 0.5 mg Q4H PRN IV 12/18/16 18:45 01/01/17 18:44 12/19/16 13:58 0.5 MG Acetaminophen/ Hydrocodone Bitart ([place] 5/325 Tab) 1 tab Q4H PRN PO 12/18/16 18:45 01/01/17 18:44 12/19/16 09:20 1 TAB Miscellaneous (Iv Fluids Completed) 1 ea PRN PRN N/A 12/18/16 20:15 12/18/17 20:14 12/19/16 11:21 1 EA Enalaprilat 0.625 mg/Dextrose 25.5 ml @ 100 mls/hr Q6H PRN IV 12/18/16 20:45 01/17/17 20:44 12/19/16 10:33 100 MLS/HR Labetalol HCl (Normodyne IV) 10 mg Q1H PRN IV 12/18/16 21:45 01/17/17 21:44 12/19/16 13:15 10 MG Amlodipine Besylate (Norvasc Tab) 5 mg QAM PO 12/20/16 09:00 01/19/17 08:59 Tramadol HCl (Ultram Tab) 50 mg Q6H PRN PO 12/19/16 11:00 01/18/17 10:59 Lidocaine (Lidoderm Patch 5%) 1 patch QAM TD 12/20/16 09:00 01/19/17 08:59 Miscellaneous (Remove Lidoderm Patch) 1 ea DAILY@21 N/A 12/19/16 21:00 01/18/17 20:59 Physical Exam Vital Signs (Past 24 Hrs): Date Time Temp Pulse Resp B/P (MAP) Pulse Ox O2 Delivery O2 Flow Rate FiO2 12/19/16 13:56 68 18 163/95 (117) 97 Room Air 12/19/16 12:00 97 Room Air 12/19/16 11:51 36.7 67 17 170/85 (113) 96 Room Air 12/19/16 10:55 83 186/99 (128) 12/19/16 10:18 67 187/100 (129) 96 12/19/16 08:20 75 15 165/86 (112) 97 Room Air 12/19/16 08:05 67 199/92 (127) 12/19/16 08:00 96 Room Air 12/19/16 07:46 36.7 66 16 177/95 (122) 98 Room Air 12/19/16 04:00 36.7 60 22 173/93 (119) 97 Room Air 12/19/16 04:00 Room Air 12/19/16 00:00 Room Air 12/18/16 23:58 36.8 71 22 168/92 (117) 96 Room Air 12/18/16 20:54 140/86 (104) 12/18/16 19:53 36.9 85 22 207/104 96 Room Air 162/67 12/18/16 19:06 37.0 82 20 157/91 96 12/18/16 17:28 82 157/91 96 Room Air 12/18/16 16:01 85 20 173/104 95 Room Air 12/18/16 14:17 79 18 188/95 97 Room Air Physical Exam: Constitutional: appearance nourished, healthy and normal Ears, Nose, Mouth and Throat: mucous membranes moist, no injection and skin normal, eyes normal Cardiovascular: normal S-1 and S-2 and regular rate and rhythm Respiratory: clear to auscultation (CTA) and no rales, rhonchi or wheeze Musculoskeletal: no peripheral edema and good distal pulses Skin: erythema and ecchymosis chin and face Eyes: extraocular muscles intact (EOMI) and pupils equal, round and reactive to light (PERRL), good vascular pulsations, disc flat NEUROLOGIC EXAMINATION: Mental status: Alert and interactive Oriented to full date and location Oriented to person Speech fluent with no evidence of aphasia Cranial Nerves smile eye brow raise symmetric, tongue mid line no trauma to tongue Reflexes: Deep tendon reflexes were symmetrical and graded 2/5. Plantar responses were flexor. Sensory: GT proprioception in tact bilaterally vibration intact Coordination: finger to nose no bi pass, hand tremor R> L some head tremor with intension Gait/Stance: Posture lying in bed Motor: Negative for pronator drift of out stretched arms with eyes closed. 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, hip flex ext plantar flex ext bilaterally 5/5 Laboratory Results Past 24 Hours: 12/19/16 06:30 Red Blood Count 4.77, Mean Corpuscular Volume 86.4, Mean Corpuscular Hemoglobin 28.7, Mean Corpuscular Hemoglobin Concent 33.3, Mean Platelet Volume 10.1, Neutrophils (%) (Auto) 62.0, Lymphocytes (%) (Auto) 27.2, Monocytes (%) (Auto) 7.7, Eosinophils (%) (Auto) 2.3, Basophils (%) (Auto) 0.5, Neutrophils # (Auto) 3.81, Lymphocytes # (Auto) 1.67, Monocytes # (Auto) 0.47, Eosinophils # (Auto) 0.14, Basophils # (Auto) 0.03 12/19/16 06:30 Test 12/18/16 15:02 12/18/16 19:44 12/18/16 21:50 12/19/16 06:30 Bedside Hemoglobin 13.6 g/dl (12.0-16.0) Bedside Hematocrit 40 % (37-47) Bedside Sodium 142 mEq/L (135-144) Bedside Potassium 3.9 mEq/L (3.3-5.0) Bedside Chloride 103 mEq/L (101-112) Bedside Total CO2 27 mEq/l (24-31) Bedside Blood Urea Nitrogen 18 mg/dl (7-18) Bedside Creatinine 0.8 mg/dl (0.6-1.3) Bedside Glucose (other) 94 mg/dl (70-99) Bedside Ionized Calcium (Christopher) 1.10 mmol/l (1.12-1.32) Total Bilirubin 0.7 mg/dl (0.2-1) Aspartate Amino Transf (AST/SGOT) 13 U/L (15-37) Alanine Aminotransferase (ALT/SGPT) 24 U/L (12-78) Alkaline Phosphatase 83 U/L (45-117) Total Protein 7.3 gm/dl (6.4-8.2) Albumin 3.8 gm/dl (3.4-5.0) Globulin 3.5 gm/dl (2.5-4.0) Albumin/Globulin Ratio 1.1 (0.9-2) Hepatitis C Antibody Screen NEG (NEG) Urine Opiates Screen POS (NEG) Urine Methadone, Qualitative NEG (NEG) Urine Barbiturates NEG (NEG) Urine Phencyclidine (PCP) Level NEG (NEG) Ur Amphetamine/Methamphetamine NEG (NEG) MDMA (Ecstasy) Screen NEG (NEG) Urine Benzodiazepines Screen NEG (NEG) Urine Cocaine Metabolite NEG (NEG) Urine Marijuana (THC) NEG (NEG) White Blood Count 6.14 K/uL (4.8-10.8) Red Blood Count 4.77 M/uL (4.2-5.4) Hemoglobin 13.7 g/dL (12.0-16.0) Hematocrit 41.2 % (37-47) Mean Corpuscular Volume 86.4 fL (80-100) Mean Corpuscular Hemoglobin 28.7 pg (25-34) Mean Corpuscular Hemoglobin Concent 33.3 g/dl (32-36) Platelet Count 211 K/uL (130-400) Mean Platelet Volume 10.1 fL (7.4-10.4) Neutrophils (%) (Auto) 62.0 % Lymphocytes (%) (Auto) 27.2 % Monocytes (%) (Auto) 7.7 % Eosinophils (%) (Auto) 2.3 % Basophils (%) (Auto) 0.5 % Neutrophils # (Auto) 3.81 K/uL (1.4-6.5) Lymphocytes # (Auto) 1.67 K/uL (1.2-3.4) Monocytes # (Auto) 0.47 K/uL (0.11-0.59) Eosinophils # (Auto) 0.14 K/uL (0-0.5) Basophils # (Auto) 0.03 K/uL (0-0.2) RDW Standard Deviation 42.3 fL (36.4-46.3) RDW Coefficient of Variation 13.4 % (11.5-14.5) Immature Granulocyte % (Auto) 0.3 % Immature Granulocyte # (Auto) 0.02 K/uL (0.00-0.02) Anion Gap 6.0 mmol/L (3-11) Est Creatinine Clear Calc Drug Dose 78.2 ml/min Estimated GFR () 95.4 Estimated GFR (Non- 82.3 BUN/Creatinine Ratio 17.1 (10-20) Calcium Level 8.6 mg/dl (8.5-10.1) Imaging maxillofacial CT - No fractures within the maxillofacial region. Soft tissue swelling/contusion at the chin. CT head - No acute intracranial abnormality. Impression 51 year old female s/p mechanical fall possible seizure in ED Plan 1. EEG ordered 2. may need MRI for further evaluation of seizure episode 3. no personal or family history of seizure 4. PT/OT for discharge needs 5. pain management as needed 6. add mg++ 400 mg and riboflavin 400 mg for migraine relief 7. NSAIDS but need to be caution about use 8. will not initiate seizure medication at this time I have seen and discussed above patient with Dr Denise Torres, neurology Pt seen and examined. Reason for consult is not fall which is recalled as a trip and no witnessed sz activity but because when pt was in ER yesterday, while awake and holding basin and vomiting pt had shaking of the arms and head. It appears that this was not witnessed or not documented by staff, but family did share with Dr. Chopra. Pt has not hx of of tremor, nor fmh of tremor. She has 4 migraines/week for which she takes excedrin migraine. Her headache today is modestly severe with n, v. She denies vertigo, diplopia, new unil weakness. There is mild nonradiating neck pain. Pt posterior neck is NT. Bruising noted submandibularly. PERRL, ON unremarkable, nml motility without nystagmus, nml facial symm. Symmetric strength, FN is normal. Side to side tremor noted with some movement of head/upper body. Mild postural and int tremor R>L. Impression: Head and hand tremor, no prior hx. Possibly related to pain, cool IV fluids. This is not sz. TSh ordered. MRI brain recommended given ongoing severity of post-concussive headache (CT head x 2 reviewed) TIARA Torres MD
--- NOTE | 2016-12-19 14:30 | ELECTROENCEPHALOGRAPH REPORT ---
REQUESTED BY: Denise Cordova PA-C. CLINICAL DIAGNOSIS: Syncope versus seizure. EEG DIAGNOSIS: Essentially normal during wakefulness. DESCRIPTION OF TRACING: This EEG was done as a bedside recording with a simultaneous video analysis of patient movement and behavior. Recording is of good technical quality with few or no muscle movement artifacts. Photic stimulation was the only parameter used. Hyperventilation was not performed and drowsiness and light sleep were not recorded. During wakefulness, there is evidence for a well-developed background rhythm in the alpha range of up to 10 Hz of maximum frequency and 30 microvolts of maximum amplitude. This is maximum posterior head regions bilaterally symmetrical. Polymorphic mid frequency theta activity is seen over all head regions, maximum in the central regions without any focal or regional predominance. Anterior head region maximum bilaterally symmetrical low voltage fast activity in the beta range is present. Photic stimulation provoked some modest response without a photomyogenic or photoparoxysmal component. At no time during the waking tracing is there evidence for potentially epileptogenic activity in the form of polyspike or spike wave bursts, focal sharp waves or focal spikes. INTERPRETATION: This EEG is essentially normal during wakefulness revealing no evidence for focal or generalized encephalopathy and no evidence for potentially epileptogenic activity.
[2016-12-19] MEDS ORDERED: METOCLOPRAMIDE HCL INJ 5 MG/ML 2 ML VIAL IV PRN (18:15)
[2016-12-19] MEDS ORDERED: LORAZEPAM 0.5 MG TAB PO PRN (19:45)
[2016-12-19] MEDS ORDERED: GADAVIST IV PRN (23:15)
[2016-12-20] VITALS (8 sets, daily range): BP systolic 122–145; BP diastolic 64–82; PULSE 67–81; TEMP 36.8; O2SAT 95–99
[2016-12-20 05:47] LABS: BASO % 0.3 %; BASO ABS # 0.02 K/uL (0-0.2); COMPLETE YES; EOS % 2.3 %; HEMATOCRIT 44.1 % (37-47); IG% 0.3 %; LYMPH % 19.3 %; LYMPH ABS # 1.27 K/uL (1.2-3.4); MEAN CORPUSCULAR HEMOGLOBIN 28.3 pg (25-34); MEAN CORPUSCULAR HGB CONC 32.2 g/dl (32-36); MEAN PLATELET VOLUME 10.4 fL (7.4-10.4); MONO % 6.5 %; NEUT % 71.3 %; PLATELET COUNT 238 K/uL (130-400); RED BLOOD COUNT 5.01 M/uL (4.2-5.4); WHITE BLOOD COUNT 6.59 K/uL (4.8-10.8)
[2016-12-20 06:20] LABS: BUN/CREATININE RATIO 16.8 (10-20); CALCIUM 8.8 mg/dl (8.5-10.1); CREATININE 0.8 mg/dl (0.60-1.20); POTASSIUM 3.8 mmol/L (3.5-5.1)
--- NOTE | 2016-12-20 07:16 | DIAGNOSTIC IMAGING REPORT ---
Brain MRI WITH AND WITHOUT CONTRAST HISTORY: Seizure. witness shaking event TECHNIQUE: Multiplanar multisequence MRI of the brain was performed both before and after the intravenous administration of contrast. COMPARISON STUDY: Head CT 12/19/2016. FINDINGS: There are no areas of restricted diffusion to suggest acute infarction. The midline structures are intact. The paranasal sinuses are clear. The mastoid air cells are clear. The ventricles and sulci are within normal limits for age. There is no mass, hematoma, midline shift. The major vascular flow-voids at the skull base are well maintained. Postcontrast sequences show no areas of abnormal enhancement. IMPRESSION: No acute intracranial abnormality. Electronically signed by: Conor Arcos M.D. 12/20/2016 7:15 AM Dictated Date/Time: 12/20/2016 7:10 AM
[2016-12-20] MEDS ORDERED: LIDODERM (LIDOCAINE) PATCH 5% TD SCH (09:00)
[2016-12-20] MEDS ORDERED: AMLODIPINE BESYLATE 5 MG TAB PO SCH ×2 (09:00)
--- NOTE | 2016-12-20 11:12 | Progress Note ---
Subjective Date of Service: Dec 20, 2016. Subjective Pt evaluation today including: conversation w/ patient, physical exam, lab review, review of studies, review of inpatient medication list Saw/examined the patient in room 202 States that she feels well worked with PT/OT with no issues Headache is resolved No other issues at this time Problem List Medical Problems: (1) Contusion of multiple sites Status: Acute (2) Fall Status: Acute (3) Fracture of manubrium Status: Acute Review of Systems Constitutional: No fever, No chills Respiratory: No shortness of breath Cardiac: No chest pain Abdomen: No pain, No nausea, No vomiting, No diarrhea Medications Current Inpatient Medications Medications (Trade) Dose Ordered Sig/Iona Route Start Time Stop Time Status Last Admin Dose Admin Ioversol (Optiray 320) 111 ml UD PRN IV 12/18/16 14:30 12/22/16 14:29 Acetaminophen (Tylenol Tab) 650 mg Q4H PRN PO 12/18/16 18:30 01/17/17 18:29 Ondansetron HCl (Zofran Inj) 4 mg Q6H PRN IV 12/18/16 18:30 01/17/17 18:29 12/19/16 13:57 4 MG Hydromorphone HCl (Dilaudid Inj) 0.5 mg Q4H PRN IV 12/18/16 18:45 01/01/17 18:44 12/19/16 13:58 0.5 MG Acetaminophen/ Hydrocodone Bitart ([place] 5/325 Tab) 1 tab Q4H PRN PO 12/18/16 18:45 01/01/17 18:44 12/19/16 09:20 1 TAB Miscellaneous (Iv Fluids Completed) 1 ea PRN PRN N/A 12/18/16 20:15 12/18/17 20:14 12/19/16 11:21 1 EA Enalaprilat 0.625 mg/Dextrose 25.5 ml @ 100 mls/hr Q6H PRN IV 12/18/16 20:45 01/17/17 20:44 12/19/16 10:33 100 MLS/HR Labetalol HCl (Normodyne IV) 10 mg Q1H PRN IV 12/18/16 21:45 01/17/17 21:44 12/19/16 13:15 10 MG Tramadol HCl (Ultram Tab) 50 mg Q6H PRN PO 12/19/16 11:00 01/18/17 10:59 12/19/16 23:12 50 MG Lidocaine (Lidoderm Patch 5%) 1 patch QAM TD 12/20/16 09:00 01/19/17 08:59 12/20/16 08:03 1 PATCH Miscellaneous (Remove Lidoderm Patch) 1 ea DAILY@21 N/A 12/19/16 21:00 01/18/17 20:59 12/19/16 21:00 1 EA Metoclopramide HCl (Reglan Inj) 10 mg Q6H PRN IV 12/19/16 18:15 01/18/17 18:14 12/19/16 19:05 10 MG Amlodipine Besylate (Norvasc Tab) 10 mg QAM PO 12/20/16 09:00 01/19/17 08:59 12/20/16 08:04 10 MG Gadobutrol (Gadavist) 8 mmol UD PRN IV 12/19/16 23:15 12/23/16 23:14 Objective Vital Signs Date Time Temp Pulse Resp B/P (MAP) Pulse Ox O2 Delivery O2 Flow Rate FiO2 12/20/16 07:52 36.8 76 18 122/64 (83) 95 12/20/16 04:00 95 Room Air 12/20/16 03:53 36.8 67 17 139/76 (97) 96 Room Air 12/20/16 00:00 95 Room Air 12/19/16 23:16 36.8 71 18 150/79 (102) 95 Room Air 12/19/16 20:00 96 Room Air 12/19/16 18:50 36.8 68 18 154/89 (110) 96 Room Air 12/19/16 16:00 96 Room Air 12/19/16 15:22 36.7 68 18 162/93 (116) 97 Room Air 12/19/16 14:27 160/87 (111) 12/19/16 13:56 68 18 163/95 (117) 97 Room Air 12/19/16 12:00 97 Room Air 12/19/16 11:51 36.7 67 17 170/85 (113) 96 Room Air 12/19/16 10:55 83 186/99 (128) 12/19/16 10:18 67 187/100 (129) 96 12/19/16 08:20 75 15 165/86 (112) 97 Room Air Physical Exam General Appearance: no apparent distress ENT: + pertinent finding (Bruising on the R side of chin) Respiratory/Chest: lungs clear, normal breath sounds, no respiratory distress, no accessory muscle use Cardiovascular: regular rate, rhythm, no edema, no murmur Extremities: normal inspection, no pedal edema Neurologic/Psychiatric: no motor/sensory deficits, alert, normal mood/affect Skin: normal color Laboratory Results Last 24 Hours Test 12/19/16 16:52 12/20/16 05:16 Thyroid Stimulating Hormone (TSH) 1.190 uIu/ml White Blood Count 6.59 K/uL Red Blood Count 5.01 M/uL Hemoglobin 14.2 g/dL Hematocrit 44.1 % Mean Corpuscular Volume 88.0 fL Mean Corpuscular Hemoglobin 28.3 pg Mean Corpuscular Hemoglobin Concent 32.2 g/dl Platelet Count 238 K/uL Mean Platelet Volume 10.4 fL Neutrophils (%) (Auto) 71.3 % Lymphocytes (%) (Auto) 19.3 % Monocytes (%) (Auto) 6.5 % Eosinophils (%) (Auto) 2.3 % Basophils (%) (Auto) 0.3 % Neutrophils # (Auto) 4.70 K/uL Lymphocytes # (Auto) 1.27 K/uL Monocytes # (Auto) 0.43 K/uL Eosinophils # (Auto) 0.15 K/uL Basophils # (Auto) 0.02 K/uL RDW Standard Deviation 43.1 fL RDW Coefficient of Variation 13.4 % Immature Granulocyte % (Auto) 0.3 % Immature Granulocyte # (Auto) 0.02 K/uL Sodium Level 142 mmol/L Potassium Level 3.8 mmol/L Chloride Level 106 mmol/L Carbon Dioxide Level 27 mmol/L Anion Gap 9.0 mmol/L Blood Urea Nitrogen 13 mg/dl Creatinine 0.80 mg/dl Est Creatinine Clear Calc Drug Dose 80.1 ml/min Estimated GFR () 98.2 Estimated GFR (Non- 84.8 BUN/Creatinine Ratio 16.8 Random Glucose 91 mg/dl Calcium Level 8.8 mg/dl Assessment and Plan This is a 51 year old female with no significant past medical history presented with mechanical fall Mechanical Fall Post-Concussive Syndrome imaging of Head, Abdomen/Pelvis, Spine unremarkable EEG no seizure activity Brain MRI - no acute intracranial abnormality plan for d/c home today if okay with neurology Hypertensive Urgency Amlodipine increased to 10mg daily BP is much better controlled now pain is now improved; and her BP elevation was more likely related to pain Low Back Pain secondary to mechanical fall CT of spine - negative DVT ppx SCDs FULL CODE
--- NOTE | 2016-12-20 14:41 | Neurology Progress Notes ---
Neurology Progress Note Date of Service Dec 20, 2016. Lali Cote is a 51 year old female with history of kidney stones and migraine headaches. She was at a gas station pumping gas, tripped and fell on cement ground. She states she remembers catching her foot on something prior to going down. Her daughter was with her and saw her fall. She lost conscience and does not remember anything until a police office was temple her head and then she remembers being in the ED. 911 called and she was taken to the ED. There was a witnessed "shaking" with her eyes close for about 10 minutes in the ED. She was confused but was slowly returning to baseline. CT head negative all other imaging has been normal accept the CT chest for possible nondisplaced sternal fracture. She has no history of seizure and there is no seizure family history. She does not drink or smoke cigs, no drug history. denies vision changes, swallowing issues, CP, accept at sternum, weakness, numbness tingling, headache, tremor, N, V. She states she is doing very well today and her pain is much better. She has been up walking with PT/OT and is doing well and would like to go home. Objective Date Time Temp Pulse Resp B/P (MAP) Pulse Ox O2 Delivery O2 Flow Rate FiO2 12/20/16 12:00 Room Air 12/20/16 11:33 36.8 76 18 141/77 (98) 99 12/20/16 09:25 81 95 12/20/16 08:00 Room Air 12/20/16 07:52 36.8 76 18 122/64 (83) 95 12/20/16 04:00 95 Room Air 12/20/16 03:53 36.8 67 17 139/76 (97) 96 Room Air 12/20/16 00:00 95 Room Air 12/19/16 23:16 36.8 71 18 150/79 (102) 95 Room Air 12/19/16 20:00 96 Room Air 12/19/16 18:50 36.8 68 18 154/89 (110) 96 Room Air 12/19/16 16:00 96 Room Air 12/19/16 15:22 36.7 68 18 162/93 (116) 97 Room Air Last 24 Hours Test 12/19/16 16:52 12/20/16 05:16 Thyroid Stimulating Hormone (TSH) 1.190 uIu/ml White Blood Count 6.59 K/uL Red Blood Count 5.01 M/uL Hemoglobin 14.2 g/dL Hematocrit 44.1 % Mean Corpuscular Volume 88.0 fL Mean Corpuscular Hemoglobin 28.3 pg Mean Corpuscular Hemoglobin Concent 32.2 g/dl Platelet Count 238 K/uL Mean Platelet Volume 10.4 fL Neutrophils (%) (Auto) 71.3 % Lymphocytes (%) (Auto) 19.3 % Monocytes (%) (Auto) 6.5 % Eosinophils (%) (Auto) 2.3 % Basophils (%) (Auto) 0.3 % Neutrophils # (Auto) 4.70 K/uL Lymphocytes # (Auto) 1.27 K/uL Monocytes # (Auto) 0.43 K/uL Eosinophils # (Auto) 0.15 K/uL Basophils # (Auto) 0.02 K/uL RDW Standard Deviation 43.1 fL RDW Coefficient of Variation 13.4 % Immature Granulocyte % (Auto) 0.3 % Immature Granulocyte # (Auto) 0.02 K/uL Sodium Level 142 mmol/L Potassium Level 3.8 mmol/L Chloride Level 106 mmol/L Carbon Dioxide Level 27 mmol/L Anion Gap 9.0 mmol/L Blood Urea Nitrogen 13 mg/dl Creatinine 0.80 mg/dl Est Creatinine Clear Calc Drug Dose 80.1 ml/min Estimated GFR () 98.2 Estimated GFR (Non- 84.8 BUN/Creatinine Ratio 16.8 Random Glucose 91 mg/dl Calcium Level 8.8 mg/dl Imaging: MRI with and without contrast- FINDINGS: There are no areas of restricted diffusion to suggest acute infarction. The midline structures are intact. The paranasal sinuses are clear. The mastoid air cells are clear. The ventricles and sulci are within normal limits for age. There is no mass, hematoma, midline shift. The major vascular flow-voids at the skull base are well maintained. Postcontrast sequences show no areas of abnormal enhancement. 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 flex plantar flex ext finger to nose with no tremor no head tremor no sensation deficit to cool or light touch Current Inpatient Medications Medications (Trade) Dose Ordered Sig/Iona Route Start Time Stop Time Status Last Admin Dose Admin Ioversol (Optiray 320) 111 ml UD PRN IV 12/18/16 14:30 12/22/16 14:29 Acetaminophen (Tylenol Tab) 650 mg Q4H PRN PO 12/18/16 18:30 01/17/17 18:29 Ondansetron HCl (Zofran Inj) 4 mg Q6H PRN IV 12/18/16 18:30 01/17/17 18:29 12/19/16 13:57 4 MG Hydromorphone HCl (Dilaudid Inj) 0.5 mg Q4H PRN IV 12/18/16 18:45 01/01/17 18:44 12/19/16 13:58 0.5 MG Acetaminophen/ Hydrocodone Bitart ([place] 5/325 Tab) 1 tab Q4H PRN PO 12/18/16 18:45 01/01/17 18:44 12/19/16 09:20 1 TAB Miscellaneous (Iv Fluids Completed) 1 ea PRN PRN N/A 12/18/16 20:15 12/18/17 20:14 12/19/16 11:21 1 EA Enalaprilat 0.625 mg/Dextrose 25.5 ml @ 100 mls/hr Q6H PRN IV 12/18/16 20:45 01/17/17 20:44 12/19/16 10:33 100 MLS/HR Labetalol HCl (Normodyne IV) 10 mg Q1H PRN IV 12/18/16 21:45 01/17/17 21:44 12/19/16 13:15 10 MG Tramadol HCl (Ultram Tab) 50 mg Q6H PRN PO 12/19/16 11:00 01/18/17 10:59 12/19/16 23:12 50 MG Metoclopramide HCl (Reglan Inj) 10 mg Q6H PRN IV 12/19/16 18:15 01/18/17 18:14 12/19/16 19:05 10 MG Amlodipine Besylate (Norvasc Tab) 10 mg QAM PO 12/20/16 09:00 01/19/17 08:59 12/20/16 08:04 10 MG Gadobutrol (Gadavist) 8 mmol UD PRN IV 12/19/16 23:15 12/23/16 23:14 Impression 51 year old female s/p mechanical fall possible seizure in ED Plan 1. EEG no seizure activity 2. may need MRI for further evaluation of seizure episode- no stroke or structure abnormalities- discussed with Dr Torres 3. no personal or family history of seizure 4. PT/OT for discharge needs 5. pain management as needed 6. add mg++ 400 mg and riboflavin 400 mg for migraine relief- discussed with patient can try these OTC medications and if she would like to make an appointment with use to discuss further interventions with her migraines 7. NSAIDS but need to be caution about use 8. will not initiate seizure medication at this time- no indication at this time 9. ok to discharge to home when medically stable I have discussed above patient with Dr Denise Torres, neurology Pt was dc before I examined. pt. MRI brain normal,raumat reviewed. Tremor was not sz. If ongoing post traumatic headaches should see us in follow-up, TIARA Torres MD
[2016-12-20] MEDS ORDERED: MGNO400 PO (15:49)
[2016-12-20] MEDS ORDERED: RIBO100T2 PO (15:49)
[2016-12-20] MEDS ORDERED: AMLO10TA2 PO (15:50)
--- NOTE | 2016-12-20 15:51 | Discharge Instructions ---
Discharge Instructions Date of Service Dec 20, 2016. Admission Reason for Admission: Chest Pain Discharge Discharge Diagnosis / Problem: Mechanical Fall - Post-concussive Syndrome Discharge Goals Goal(s): Decrease discomfort, Improve function, Diagnostic testing, Therapeutic intervention Activity Recommendations Activity Limitations: resume your previous activity . Instructions / Follow-Up Instructions / Follow-Up Please follow-up with Dr. Esquivel - you will get a phone call with a date and time * Take magnesium and Vitamin B2 to prevent migraines * You are started on amlodipine for blood pressure - have your primary care recheck blood pressure and adjust medications accordingly Current Hospital Diet Patient's current hospital diet: AHA Diet (Heart Healthy) Discharge Diet Recommended Diet: Regular Diet Pending Studies Studies pending at discharge: no Medical Emergencies . Who to Call and When: Medical Emergencies: If at any time you feel your situation is an emergency, please call 911 immediately. . Non-Emergent Contact Non-Emergency issues call your: Primary Care Provider . . "Provider Documentation" section prepared by Antony Staley. . VTE Core Measure Inpt VTE Proph given/why not?: SCD's
--- NOTE | 2016-12-20 15:53 | Discharge Summary ---
Discharge Summary Date of Service Dec 20, 2016. Discharge Summary Admission Date: Dec 18, 2016 at 18:36 Discharge Date: Dec 20, 2016 Discharge Disposition: Home Principal Diagnosis: Mechanical Fall post-concussive syndrome HTN Medication Reconciliation New Medications: Magnesium Oxide (Magnesium-Oxide) 400 Mg Tab 400 MG PO DAILY for 30 Days, #30 TABS Riboflavin (B2) 100 Mg Tab 100 MG PO DAILY for 30 Days, #30 TABS Amlodipine Besylate (Norvasc) 10 Mg Tab 1 TAB PO DAILY for 30 Days, #30 TAB 5 Refills Admission Information HPI (per Admitting provider): 51 year old female with no known past medical history presenting with fall. Patient was in gas station putting gas, tripped and fell on cement ground, right side first. Daughter saw her fall, went to her and patient was not responding until after 30 seconds. 911 called and she was taken to the ER. Per family, they have witnessed the patient in the ER "shaking" with her eyes close for about 10 minutes. Patient seemingly confused after but slowly returned to being oriented although very lethargic. CT head negative, CT unrevealing except for possible nondisplaced sternal fracture. On my exam, patient was drowsy but was oriented x 2, follows all commands. Reports pain on the right side of the face, right side of the chest and right hip. Denies headache, nausea, changes with vision, focal deficits, dyspnea. No other symptoms. Physical Exam (per Admitting): General Appearance: WD/WN, no apparent distress Head: + pertinent finding ((+) hematoma on the chin, right side) Eyes: normal inspection, PERRL, EOMI, sclerae normal ENT: normal ENT inspection, hearing grossly normal, pharynx normal Neck: supple, no adenopathy, thyroid normal, no JVD, trachea midline Respiratory/Chest: chest non-tender, lungs clear, normal breath sounds, no respiratory distress, no accessory muscle use Cardiovascular: regular rate, rhythm, no edema, no gallop, no JVD, no murmur , normal peripheral pulses Abdomen/GI: normal bowel sounds, non tender, soft, no organomegaly Back: normal inspection, no CVA tenderness Extremities/Musculoskelatal: normal inspection, no calf tenderness, no pedal edema Neurologic/Psych: artificial plastic eye maker II-XII nml as tested, no motor/sensory deficits, normal mood/affect, oriented x 3, + pertinent finding (somewhat drowsy) Skin: normal color, warm/dry, no rash Lymphatic: no adenopathy Hospital Course This is a 51 year old female with no significant past medical history presented with mechanical fall Mechanical Fall Post-Concussive Syndrome imaging of Head, Abdomen/Pelvis, Spine unremarkable EEG no seizure activity Brain MRI - no acute intracranial abnormality plan for d/c home today if okay with neurology Hypertensive Urgency Amlodipine increased to 10mg daily BP is much better controlled now pain is now improved; and her BP elevation was more likely related to pain Low Back Pain secondary to mechanical fall CT of spine - negative DVT ppx SCDs FULL CODE Total time spent on discharge = 40 minutes This includes examination of the patient, discharge planning, medication reconciliation, and communication with other providers. Discharge Instructions Please follow-up with Dr. Esquivel - you will get a phone call with a date and time * Take magnesium and Vitamin B2 to prevent migraines * You are started on amlodipine for blood pressure - have your primary care recheck blood pressure and adjust medications accordingly
[2016-12-21 08:22] LABS: COD UR NEGATIVE NG/ML (CUTOFF=50); HYDROCOD UR NEGATIVE NG/ML (CUTOFF=50); HYDROMOR UR 586 NG/ML (CUTOFF=50); MORPHINE UR 1890 NG/ML (CUTOFF=50); NORHYDROCODONE CONF UR NEGATIVE NG/ML (CUTOFF=50); OXYMORPH UR NEGATIVE NG/ML (CUTOFF=50)
== END 2016-12-20 16:16 | disposition home or self-care (01) ==
LOC: EDBD 13:31 → C.EDB 13:32 → ENRESERV 18:36 → C.2E 18:36 → EDBEDREQ 18:38
PROVIDERS: ADMIT Internal Medicine; ATTEND Family Medicine
DX: S22.21XA Fracture of manubrium, initial encounter for closed fracture (principal); S00.83XA Contusion of other part of head, initial encounter; W01.198A Fall on same level from slipping, tripping and stumbling with subsequent striking against other object, initial encounter; F07.81 Postconcussional syndrome; I16.0 Hypertensive urgency

== ENCOUNTER 2017-04-03 20:03 | Emergency (ER) | payer OTHER ==
[~2017-04-03] VITALS: Ht 157.5 cm; Wt 74.0 kg
[~2017-04-03 20:03] MED LIST changes: +AMLO10TA2 PO; -EXCEDRIN MIGRAINE PO; +MGNO400 PO; -NITR1CAP33 PO; +RIBO100T2 PO
[2017-04-03 20:21] VITALS: TEMP 36.6; Ht 157.5 cm; Wt 74.0 kg
[2017-04-03] MEDS ORDERED: OXYCODONE HCL IR 5 MG TAB (IMMEDIATE RELEASE) PO STA (20:29)
--- NOTE | 2017-04-03 21:00 | DIAGNOSTIC IMAGING REPORT ---
L ANKLE MIN 3 VIEWS ROUTINE CLINICAL HISTORY: Left ankle pain status post trauma COMPARISON: None. DISCUSSION: No fractures or dislocations are visualized. There is a small calcification within the distal interosseous ligament. There is mild lateral soft tissue swelling. There is a plantar calcaneal spur. IMPRESSION: No acute fractures or dislocations identified. Electronically signed by: Dileep Aranda M.D. 04/03/2017 8:58 PM Dictated Date/Time: 04/03/2017 8:57 PM
[2017-04-03] MEDS ORDERED: AMLO10TA2 PO (21:16)
[2017-04-03] MEDS ORDERED: OXYC1TAB3 PO (21:22)
[2017-04-03] MEDS ORDERED: OXYCODONE IR HOME PACK PO ONE (21:30)
[2017-04-03 21:47] VITALS: BP 184/105; PULSE 73; O2SAT 96
--- NOTE | 2017-04-04 00:27 | EMERGENCY ROOM VISIT NOTE ---
History First contact with patient: 20:24 Chief Complaint: ANKLE PAIN Stated Complaint: FELL, ANKLE SWELL AND CANT WALK History of Present Illness The patient is a 51 year old female who presents to the Emergency Room with complaints of significant left ankle pain after slipping on ice and falling, twisting the ankle. The patient reports that she fell directly on the leg. She denies any head injury, neck pain, back pain or other extremity injuries from the fall. She rates her discomfort an 8 out of 10 with weightbearing. She denies any pain radiating into the leg or knee. She denies paresthesias or numbness of the left foot or toes. Review of Systems 10 system review was performed and was negative except for pertinent positives and negatives as indicated in history of present illness Past Medical/Surgical History Medical Problems: (1) Chest pain (2) Neurogenic bladder Family History Unremarkable Social History Smoking Status: Never Smoker Drug Use: none Marital Status: Occupation Status: employed Current/Historical Medications Scheduled Amlodipine Besylate (Norvasc), 10 MG PO DAILY Scheduled PRN Oxycodone Ir (Roxicodone Ir), 1 TAB PO Q4H PRN for Pain Physical Exam Vital Signs Date Time Temp Pulse Resp B/P (MAP) Pulse Ox O2 Delivery O2 Flow Rate FiO2 04/03/17 21:47 73 20 184/105 96 Room Air 04/03/17 20:21 36.6 61 18 179/90 99 Room Air Physical Exam CONSTITUTIONAL: Healthy and well nourished. Alert and oriented X 3 with positive affect. HEENT: Normocephalic, atraumatic. Pupils equal, round and reactive. NECK: Full active range of motion without discomfort. MUSCULOSKELETAL: Examination of the left ankle shows mild generalized edema without ecchymosis or open wounds. The patient has generalized tenderness mostly over the lateral ankle region. Minimal tenderness to palpation of the deltoid ailment. Negative anterior draw. No discomfort to palpation of the dorsal midfoot, metatarsals, phalanges, calcaneus or Achilles tendon. No tenderness to palpation of the proximal leg. Pedal pulses are intact. INTEGUMENTARY: No rash or other significant dermatologic conditions noted. NEUROLOGIC: Left foot and toes are sensory intact. Medical Decision & Procedures ER Provider Diagnostic Interpretation: My interpretation of left ankle x-rays does not show any acute fractures, dislocation or ankle mortise asymmetry. Radiologist report is as follows: L ANKLE MIN 3 VIEWS ROUTINE CLINICAL HISTORY: Left ankle pain status post trauma COMPARISON: None. DISCUSSION: No fractures or dislocations are visualized. There is a small calcification within the distal interosseous ligament. There is mild lateral soft tissue swelling. There is a plantar calcaneal spur. IMPRESSION: No acute fractures or dislocations identified. Medications Administered Medications (Trade) Dose Ordered Sig/Iona Route Start Time Stop Time Status Last Admin Dose Admin Oxycodone HCl (Roxicodone Immediate Rel Tab) 5 mg NOW STAT PO 04/03/17 20:29 04/03/17 20:31 DC 04/03/17 20:45 5 MG Oxycodone HCl (Roxicodone Immediate Rel 5MG Home Pack) 1 homepack UD ONCE PO 04/03/17 21:30 04/03/17 21:31 DC 04/03/17 21:40 1 HOMEPACK ED Course Patient history and physical exam were performed. Nurse's notes were reviewed. Vital signs were reviewed and were normal. The patient appears in significant discomfort from pain. She was administered OxyIR 5 mg. X-rays of the left ankle were normal. Because of significant discomfort, and concern for ability to weight-bear, I elected to apply a fracture boot. The patient reported notable discomfort with application. She was also dispensed crutches to also help with ambulation. Her has a walker at home that she can also use as needed. The patient was encouraged to intermittently apply ice and elevate ankle for swelling. She was given instructions on range of motion exercises to prevent stiffness. She may alternate ibuprofen and Tylenol for additional baseline pain relief. The patient was dispensed a home pack and short prescription for OxyIR 5 mg as needed for breakthrough pain. She was encouraged to follow-up with [facility] for further reevaluation. The patient was happy with plan of care, voiced understanding of all discharge instructions, and rated her discomfort a 5 out of 10 at the conclusion of my exam. Medical Decision [place] Drug Monitoring Program Search Results: patient reviewed within database, no issues identified Medication Reconcilliation Current Medication List: was personally reviewed by me Blood Pressure Screening Patient's blood pressure: Normal blood pressure Impression Primary Impression: Left ankle injury Additional Impression: Fall due to slipping on ice or snow Departure Information Prescriptions Oxycodone Ir (Roxicodone Ir) 5 Mg Tab 1 TAB PO Q4H Y for Pain, #10 TAB For Initial Treatment Prov: Jason Fernandez PA 04/03/17 Referrals No Doctor, Assigned (PCP) Patient Instructions [facility] Problem Qualifiers Primary Impression: Left ankle injury Encounter type: initial encounter Qualified Codes: S99.912A - Unspecified injury of left ankle, initial encounter Additional Impression: Fall due to slipping on ice or snow Encounter type: initial encounter Qualified Codes: W00.9XXA - Unspecified fall due to ice and snow, initial encounter
== END 2017-04-03 21:47 | disposition home or self-care (01) ==
LOC: C.EDB 20:03 → C.EDD 21:47
DX: S99.912A Unspecified injury of left ankle, initial encounter (principal); W00.0XXA Fall on same level due to ice and snow, initial encounter; N31.9 Neuromuscular dysfunction of bladder, unspecified

== ENCOUNTER 2017-11-18 14:43 | Emergency (ER) | payer SELFPAY ==
[~2017-11-18] VITALS: Ht 165.1 cm; Wt 76.6 kg
[~2017-11-18 14:43] MED LIST changes: -MGNO400 PO; -RIBO100T2 PO
[2017-11-18 14:52] VITALS: TEMP 36.8; Ht 165.1 cm; Wt 76.6 kg
[2017-11-18] MEDS ORDERED: HALOPERIDOL LACTATE 5 MG/ML 1 ML VIAL IV STA (15:30)
[2017-11-18] MEDS ORDERED: SODIUM CHLORIDE 0.9% 1000ML 1,000 ML IV ONE (15:30)
[2017-11-18] MEDS ORDERED: FAMOTIDINE 20MG/5ML IV PUSH IV STA (15:30)
--- NOTE | 2017-11-18 15:35 | EMERGENCY ROOM VISIT NOTE ---
History Report prepared by Yuliya: David Fernandez Under the Supervision of: Dr. Justo Duran M.D. First contact with patient: 15:22 Chief Complaint: SHOULDER PAIN Stated Complaint: PAIN IN L SHOULDER BLAD & BURPING W/FOAM History of Present Illness The patient is a 52 year old female who presents to the Emergency Room with complaints of achy left posterior shoulder pain and excessive gas causing her to constantly burp for the past 3 days. The patient states she has not been vomiting but she does produce a "white foamy" content when she burps. The patient denies diarrhea, nausea, fevers, eating any new foods, shortness of breath, leg swelling, sore throat or any recent travel, but she did feel a little diaphoretic. She reports that something like this has never happened before and that she has no other medical problems. She tried to take Mylox, Tums , Zantac, Gas relief pills, antacid pills, peppermint, and Digize, but none of that worked. She also notes that everything she is eating or drinking is staying down. Source of History: patient Onset: 3 days ago Position: shoulder (left) Quality: ache, other (Gassy ) Timing: constant Associated Symptoms: + diaphoresis, No SOB, No nausea, No vomiting, No diarrhea Review of Systems See HPI for pertinent positives and negatives. A total of ten systems were reviewed and were otherwise negative. Past Medical & Surgical Medical Problems: (1) Chest pain (2) Neurogenic bladder Family History Patient reports no known family medical history. Social History Smoking Status: Never Smoker Drug Use: none Marital Status: Occupation Status: employed Current/Historical Medications Scheduled Pantoprazole Sodium (Protonix), 1 TAB PO DAILY Simethicone (Gas Relief), Unknown Dose PO UD Scheduled PRN Chlorpromazine Hcl (Thorazine), 25 MG PO TID PRN for Documentation Ranitidine Hcl (Zantac), 150 MG PO BID PRN for UD Allergies Coded Allergies: Clindamycin (Verified Allergy, Intermediate, RASH, 11/18/17) Sulfa Antibiotics (Verified Allergy, Intermediate, RASH, 11/18/17) Physical Exam Vital Signs Date Time Temp Pulse Resp B/P (MAP) Pulse Ox O2 Delivery O2 Flow Rate FiO2 11/18/17 19:47 70 18 196/103 96 11/18/17 18:30 73 18 182/105 96 Room Air 11/18/17 17:03 76 18 215/99 98 Room Air 11/18/17 16:25 86 11/18/17 16:11 96 Room Air 11/18/17 16:11 95 Room Air 11/18/17 14:52 36.8 80 16 194/121 96 Room Air Physical Exam GENERAL: Awake, alert, well-appearing, in no distress. Lying on stretcher occasionally retching. HENT: Normocephalic, atraumatic. Oropharynx unremarkable. EYES: Normal conjunctiva. Sclera non-icteric. NECK: Supple. No nuchal rigidity. RESPIRATORY: Clear to auscultation. No wheezes. Normal respiratory effort. CARDIAC: Normal rate. Normal rhythm. Extremities warm and well perfused. GI: Soft, non-distended. No tenderness to palpation. No rebound or guarding. No masses. RECTAL: Deferred. MUSCULOSKELETAL: Atraumatic. Chest examination reveals no tenderness. There is no CVA tenderness to palpation. LOWER EXTREMITIES: Calves are equal size bilaterally and non-tender. No edema NEURO: Normal sensorium. No sensory or motor deficits noted. No facial droop. SKIN: Warm and dry. No rash or jaundice noted. Medical Decision & Procedures ER Provider Diagnostic Interpretation: Radiology results as stated below per my review and radiologist interpretation: (CHEST FOR PE) ANGIO WITH CT DOSE: 871.76 mGy.cm HISTORY: 52 years-old Female with presents with acute chest and left shoulder pain with nausea, vomiting and shortness of breath.. TECHNIQUE: Multiple CTA images of the chest were obtained after the intravenous administration of 119 ml Optiray 320. Coronal and sagittal MIPS were obtained from the axial data set and were submitted for review. A dose lowering technique was utilized adhering to the principles of ALARA. COMPARISON: CT abdomen and pelvis of same day, chest radiograph of same day, CT chest 12/18/2016 FINDINGS: CTA: Heart is normal in size without pericardial effusion. Thoracic aorta is normal in both course and caliber without aneurysm or dissection. Mild tortuosity about the proximal left subclavian artery. The pulmonary arterial tree is opacified to the level of the proximal subsegmental branches and demonstrates no focal filling defects to suggest pulmonary thromboembolic disease. CT CHEST: No dominant thyroid nodule. No pathologically enlarged lymph nodes of the chest identified. Mildly prominent likely reactive right hilar lymph nodes. No pneumothorax or pleural effusion. Subsegmental bibasilar groundglass densities suggest atelectasis. No lobar airspace consolidation to suggest pneumonia. There are no suspicious pulmonary nodules or masses identified. Mild bilateral bronchial wall thickening. Central airways are patent. No acute process of the imaged upper abdomen. Indeterminate 6 mm hypodense lesion of the hepatic dome, too small to characterize. Soft tissues and breast parenchyma appear unremarkable. Bones appear intact. Multilevel spondylitic spurring of the spine. Indeterminate nonaggressive appearing 8 mm lesion involving the right lamina C7, partially imaged appears unchanged. IMPRESSION: 1. No acute intrathoracic abnormality identified, specifically no acute aortic pathology or evidence of pulmonary thromboembolic disease. 2. Subsegmental bibasilar groundglass densities suggest atelectasis. 3. No lobar airspace consolidation or adenopathy. The above report was generated using voice recognition software. It may contain grammatical, syntax or spelling errors. Electronically signed by: Eliseo Bowen M.D. 11/18/2017 5:22 PM Dictated Date/Time: 11/18/2017 5:15 PM CHEST ONE VIEW PORTABLE HISTORY: 52 years-old Female CHEST PAIN acute atypical chest pain COMPARISON: Chest CT 12/18/2016 TECHNIQUE: Portable AP view of the chest FINDINGS: Cardiac mediastinal and hilar silhouettes are within normal limits. No pneumothorax, pleural effusion, focal airspace consolidation or overt pulmonary edema. The bones of the chest appear grossly intact. Mild convex left curvature of the midthoracic spine. IMPRESSION: No acute process. The above report was generated using voice recognition software. It may contain grammatical, syntax or spelling errors. Electronically signed by: Eliseo Bowen M.D. 11/18/2017 4:12 PM Dictated Date/Time: 11/18/2017 4:10 PM [address] AND PELVIS CT WITH IV CONTRAST HISTORY: Acute nausea and vomiting nausea/vomiting, L shoulder pain TECHNIQUE: Multiaxial CT images of the abdomen and pelvis were performed following the use of intravenous contrast. A dose lowering technique was utilized adhering to the principles of ALARA. COMPARISON STUDY: CTA of the chest of same day, CT abdomen and pelvis 12/18/2016 and 09/25/2009. FINDINGS: Mild subsegmental bibasilar atelectasis. No pneumatosis or pneumoperitoneum. Imaged inferior cardiac chambers are unremarkable. Indeterminate 8 mm lesion of the hepatic dome demonstrating decreased density along its peripheral margin and central increased density, unchanged from prior study suggesting benign etiology. This has decreased in size from 2010, and demonstrated macroscopic fat attenuation suggesting intrahepatic lipoma. No intrahepatic biliary ductal dilation. Gallbladder, spleen, pancreas and adrenal glands are unremarkable. Multifocal cortical scarring and parenchymal thinning about the left kidney. Subcentimeter hypodense 6 mm lesion of the interpolar right kidney suggest probable cyst. No renal calculi or obstructive uropathy. Bladder is unremarkable. Calcifications about the mid myometrial uterine body. Adnexa are unremarkable. The aorta and IVC are within normal limits. No pathologically enlarged lymph nodes. No bowel obstruction or focal bowel wall thickening. No ascites or mesenteric inflammatory changes. Terminal ileum and appendix appear unremarkable. Soft tissues are within normal limits. Imaged breast parenchyma is unremarkable. Bones appear intact. Severe facet arthrosis at L4-L5 with degenerative related grade 1 anterolisthesis L4 on L5. IMPRESSION: 1. No acute intra-abdominal or intrapelvic abnormality identified. 2. Multifocal parenchymal scarring with cortical thinning about the left kidney. 3. No renal calculi or obstructive uropathy. 4. Normal appendix. Electronically signed by: Eliseo Bowen M.D. 11/18/2017 5:33 PM Dictated Date/Time: 11/18/2017 5:26 PM Laboratory Results 11/18/17 16:00 Red Blood Count 5.01, Mean Corpuscular Volume 86.0, Mean Corpuscular Hemoglobin 28.9, Mean Corpuscular Hemoglobin Concent 33.6, Mean Platelet Volume 10.5, Neutrophils (%) (Auto) 60.6, Lymphocytes (%) (Auto) 31.2, Monocytes (%) (Auto) 5.3, Eosinophils (%) (Auto) 2.2, Basophils (%) (Auto) 0.5, Neutrophils # (Auto) 3.52, Lymphocytes # (Auto) 1.81, Monocytes # (Auto) 0.31, Eosinophils # (Auto) 0.13, Basophils # (Auto) 0.03 11/18/17 16:00 Test 11/18/17 16:00 White Blood Count 5.81 K/uL (4.8-10.8) Red Blood Count 5.01 M/uL (4.2-5.4) Hemoglobin 14.5 g/dL (12.0-16.0) Hematocrit 43.1 % (37-47) Mean Corpuscular Volume 86.0 fL (80-100) Mean Corpuscular Hemoglobin 28.9 pg (25-34) Mean Corpuscular Hemoglobin Concent 33.6 g/dl (32-36) Platelet Count 226 K/uL (130-400) Mean Platelet Volume 10.5 fL (7.4-10.4) Neutrophils (%) (Auto) 60.6 % Lymphocytes (%) (Auto) 31.2 % Monocytes (%) (Auto) 5.3 % Eosinophils (%) (Auto) 2.2 % Basophils (%) (Auto) 0.5 % Neutrophils # (Auto) 3.52 K/uL (1.4-6.5) Lymphocytes # (Auto) 1.81 K/uL (1.2-3.4) Monocytes # (Auto) 0.31 K/uL (0.11-0.59) Eosinophils # (Auto) 0.13 K/uL (0-0.5) Basophils # (Auto) 0.03 K/uL (0-0.2) RDW Standard Deviation 41.6 fL (36.4-46.3) RDW Coefficient of Variation 13.3 % (11.5-14.5) Immature Granulocyte % (Auto) 0.2 % Immature Granulocyte # (Auto) 0.01 K/uL (0.00-0.02) Anion Gap 10.0 mmol/L (3-11) Est Creatinine Clear Calc Drug Dose 68.0 ml/min Estimated GFR () 76.3 Estimated GFR (Non- 65.9 BUN/Creatinine Ratio 14.6 (10-20) Calcium Level 9.0 mg/dl (8.5-10.1) Total Bilirubin 0.5 mg/dl (0.2-1) Direct Bilirubin 0.2 mg/dl (0-0.2) Aspartate Amino Transf (AST/SGOT) 12 U/L (15-37) Alanine Aminotransferase (ALT/SGPT) 19 U/L (12-78) Alkaline Phosphatase 78 U/L (45-117) Troponin I < 0.015 ng/ml (0-0.045) Total Protein 7.5 gm/dl (6.4-8.2) Albumin 3.9 gm/dl (3.4-5.0) Lipase 181 U/L (73-393) Laboratory results reviewed by me Medications Administered Medications (Trade) Dose Ordered Sig/Iona Route Start Time Stop Time Status Last Admin Dose Admin Haloperidol Lactate (Haldol Inj) 2.5 mg NOW STAT IV 11/18/17 15:30 11/18/17 15:33 DC 11/18/17 16:08 2.5 MG Famotidine (Pepcid 20mg Iv Push) 20 mg ONE STAT IV 11/18/17 15:30 11/18/17 15:33 DC 11/18/17 16:08 20 MG Sodium Chloride 1,000 ml @ 999 mls/hr Q1H1M ONCE IV 11/18/17 15:30 11/18/17 16:30 DC 11/18/17 16:07 999 MLS/HR Ketorolac Tromethamine (Toradol Inj) 15 mg NOW STAT IV 11/18/17 17:55 11/18/17 17:57 DC 11/18/17 18:03 15 MG Pantoprazole Sodium 40 mg/ Syringe 10 ml @ 5 mls/min NOW ONCE IV 11/18/17 18:00 11/18/17 18:01 DC 11/18/17 18:28 5 MLS/MIN Metoclopramide HCl (Reglan Inj) 10 mg NOW STAT IV. 11/18/17 18:04 11/18/17 18:05 DC 11/18/17 18:05 10 MG ECG Per My Interpretation Indication: back/shoulder pain Rate (beats per minute): 67 Rhythm: normal sinus Findings: T-wave inversion (Lead 3), no ectopy, other (Normal intervals, Normal axis) Comparison ECG Date: December 18, 2016 Change: no significant change ED Course 1523: The patient was evaluated in room B7. A complete history and physical exam was performed. 1530: Sodium Chloride 1000ml @ 999mls/hr, Pepcid 20mg IV, Haldol 2.5mg IV 1755: Toradol 15mg IV, Reglan 10mg IV 1800: Pantoprazole Sodium 40mg 10ml @ 5mls/min IV 1804: Reglan 10mg IV 1905: I reevaluated the patient and she is feeling better. 1914: I reevaluated the patient. Discussed results and discharge instructions: She verbalized understanding and agreement. The patient is ready for discharge. Medical Decision Differential diagnosis: Etiologies such as appendicitis, diverticulitis, PUD, biliary pathology, UTI, pancreatitis, obstruction, mesenteric ischemia, aortic pathology, infections, inflammatory bowel disease, renal colic, intractable hiccups, cardiac ischemia, aortic dissection, pulmonary embolism, pneumonia, pneumothorax, musculoskeletal , infections, pericarditis, myocarditis, esophageal rupture, gastrointestinal, as well as others were entertained. Patient presents with complaints of 4 days of continuous nausea and hiccups with belching. Denies abdominal pain but significant left shoulder pain. Denies shortness of breath or chest pain. No trauma. No recent travel. Moving her bowels okay. Refractory to home attempts of other medications. Some white foamy stuff coming up with belching. CT of the chest and abdomen completed to exclude intrathoracic or abdominal process. Fairly benign abdomen doubt perforation appendicitis or obstruction. No upper quadrant tenderness and doubt biliary colic. No evidence of bony injury to the back or shoulder. Could be a pancreatitis and labs for that hepatitis were completed; negative. Lower suspicion for ACS. This could be esophageal spasm and intractable hiccups. Did trial some haloperidol to see if this would help. Laboratory studies are unremarkable without evidence of hepatic dysfunction or pancreatitis. There is no evidence of dissection or PE. Normal CTA Chest and abdominal CT. No signs of dissection. Patient had some improvement with Haldol and Pepcid. Given additional Reglan, Toradol for some back pain and Protonix. Believe this is more of an intractable hiccups situation. Given information for PCP follow and including follow up regarding hypertension. Discussed return criteria. Rx for Protonix and Thorazine. She is in agreement with plan. Medication Reconcilliation Current Medication List: was personally reviewed by me Blood Pressure Screening Patient's blood pressure: Elevated blood pressure Blood pressure disposition: Referred to PCP Impression Primary Impression: Intractable hiccups Additional Impressions: Esophageal spasm Hypertension Scribe Attestation The scribe's documentation has been prepared under my direction and personally reviewed by me in its entirety. I confirm that the note above accurately reflects all work, treatment, procedures, and medical decision making performed by me. Departure Information Dispostion Home / Self-Care Prescriptions Pantoprazole Sodium (PROTONIX) 40 Mg Tab 1 TAB PO DAILY for 14 Days, #14 TAB 5 Refills Prov: Justo Duran M.D. 11/18/17 Chlorpromazine Hcl (Thorazine) 25 Mg Tab 25 MG PO TID Y for Documentation for 5 Days, #15 TAB As needed for esophageal spasm/hiccups Prov: Justo Duran M.D. 11/18/17 Referrals No Doctor, Assigned (PCP) Forms HOME CARE DOCUMENTATION FORM, IMPORTANT VISIT INFORMATION Patient Instructions My [facility] Additional Instructions Please continue maintain hydration. Please utilize prescribed medications to help with her symptoms going forward. The Thorazine may make you somewhat drowsy so please be careful until he understand how to fax you. Given you a list of different practices the area to establish primary care doctor. Follow- up with your regular doctor in the next 3-5 days for reevaluation. We also discussed your blood pressure issues as well. If you begin to experience any new or concerning symptoms please return here for reevaluation. Problem Qualifiers Additional Impressions: Hypertension Hypertension type: unspecified Qualified Codes: I10 - Essential (primary) hypertension
[2017-11-18] MEDS ORDERED: OPTIRAY 320 IV PRN (15:45)
[2017-11-18] MEDS ORDERED: SIME1CHW17 PO (15:58)
[2017-11-18] MEDS ORDERED: RANI150T3 PO (15:58)
[2017-11-18 16:09] LABS: BASO % 0.5 %; BASO ABS # 0.03 K/uL (0-0.2); EOS % 2.2 %; EOS ABS # 0.13 K/uL (0-0.5); HEMATOCRIT 43.1 % (37-47); HEMOGLOBIN 14.5 g/dL (12.0-16.0); IG# 0.01 K/uL (0.00-0.02); LYMPH % 31.2 %; LYMPH ABS # 1.81 K/uL (1.2-3.4); MEAN CORPUSCULAR HEMOGLOBIN 28.9 pg (25-34); MEAN CORPUSCULAR HGB CONC 33.6 g/dl (32-36); MEAN PLATELET VOLUME 10.5 fL (7.4-10.4); MONO % 5.3 %; MONO ABS # 0.31 K/uL (0.11-0.59); NEUT % 60.6 %; NEUT ABS # 3.52 K/uL (1.4-6.5); PLATELET COUNT 226 K/uL (130-400); RED CELL DISTRIBUTION WIDTH CV 13.3 % (11.5-14.5); RED CELL DISTRIBUTION WIDTH SD 41.6 fL (36.4-46.3); WHITE BLOOD COUNT 5.81 K/uL (4.8-10.8)
[2017-11-18 16:11] VITALS: O2SAT 96
--- NOTE | 2017-11-18 16:13 | DIAGNOSTIC IMAGING REPORT ---
CHEST ONE VIEW PORTABLE HISTORY: 52 years-old Female CHEST PAIN acute atypical chest pain COMPARISON: Chest CT 12/18/2016 TECHNIQUE: Portable AP view of the chest FINDINGS: Cardiac mediastinal and hilar silhouettes are within normal limits. No pneumothorax, pleural effusion, focal airspace consolidation or overt pulmonary edema. The bones of the chest appear grossly intact. Mild convex left curvature of the midthoracic spine. IMPRESSION: No acute process. The above report was generated using voice recognition software. It may contain grammatical, syntax or spelling errors. Electronically signed by: Eliseo Bowen M.D. 11/18/2017 4:12 PM Dictated Date/Time: 11/18/2017 4:10 PM
[2017-11-18 16:36] LABS: ALBUMIN 3.9 gm/dl (3.4-5.0); ALKALINE PHOSPHATASE 78 U/L (45-117); ALT/SGPT 19 U/L (12-78); AST/SGOT 12 U/L (15-37); BLOOD UREA NITROGEN 14 mg/dl (7-18); CARBON DIOXIDE 27 mmol/L (21-32); CREATININE 0.98 mg/dl (0.60-1.20); GLUCOSE 85 mg/dl (70-99); LIPASE 181 U/L (73-393); POTASSIUM 3.7 mmol/L (3.5-5.1); SODIUM 143 mmol/L (136-145); TOTAL PROTEIN 7.5 gm/dl (6.4-8.2)
--- NOTE | 2017-11-18 17:23 | DIAGNOSTIC IMAGING REPORT ---
(CHEST FOR PE) ANGIO WITH CT DOSE: 871.76 mGy.cm HISTORY: 52 years-old Female with presents with acute chest and left shoulder pain with nausea, vomiting and shortness of breath.. TECHNIQUE: Multiple CTA images of the chest were obtained after the intravenous administration of 119 ml Optiray 320. Coronal and sagittal MIPS were obtained from the axial data set and were submitted for review. A dose lowering technique was utilized adhering to the principles of ALARA. COMPARISON: CT abdomen and pelvis of same day, chest radiograph of same day, CT chest 12/18/2016 FINDINGS: CTA: Heart is normal in size without pericardial effusion. Thoracic aorta is normal in both course and caliber without aneurysm or dissection. Mild tortuosity about the proximal left subclavian artery. The pulmonary arterial tree is opacified to the level of the proximal subsegmental branches and demonstrates no focal filling defects to suggest pulmonary thromboembolic disease. CT CHEST: No dominant thyroid nodule. No pathologically enlarged lymph nodes of the chest identified. Mildly prominent likely reactive right hilar lymph nodes. No pneumothorax or pleural effusion. Subsegmental bibasilar groundglass densities suggest atelectasis. No lobar airspace consolidation to suggest pneumonia. There are no suspicious pulmonary nodules or masses identified. Mild bilateral bronchial wall thickening. Central airways are patent. No acute process of the imaged upper abdomen. Indeterminate 6 mm hypodense lesion of the hepatic dome, too small to characterize. Soft tissues and breast parenchyma appear unremarkable. Bones appear intact. Multilevel spondylitic spurring of the spine. Indeterminate nonaggressive appearing 8 mm lesion involving the right lamina C7, partially imaged appears unchanged. IMPRESSION: 1. No acute intrathoracic abnormality identified, specifically no acute aortic pathology or evidence of pulmonary thromboembolic disease. 2. Subsegmental bibasilar groundglass densities suggest atelectasis. 3. No lobar airspace consolidation or adenopathy. The above report was generated using voice recognition software. It may contain grammatical, syntax or spelling errors. Electronically signed by: Eliseo Bowen M.D. 11/18/2017 5:22 PM Dictated Date/Time: 11/18/2017 5:15 PM
--- NOTE | 2017-11-18 17:35 | DIAGNOSTIC IMAGING REPORT ---
ABDOMEN AND PELVIS CT WITH IV CONTRAST HISTORY: Acute nausea and vomiting nausea/vomiting, L shoulder pain TECHNIQUE: Multiaxial CT images of the abdomen and pelvis were performed following the use of intravenous contrast. A dose lowering technique was utilized adhering to the principles of ALARA. COMPARISON STUDY: CTA of the chest of same day, CT abdomen and pelvis 12/18/2016 and 09/25/2009. FINDINGS: Mild subsegmental bibasilar atelectasis. No pneumatosis or pneumoperitoneum. Imaged inferior cardiac chambers are unremarkable. Indeterminate 8 mm lesion of the hepatic dome demonstrating decreased density along its peripheral margin and central increased density, unchanged from prior study suggesting benign etiology. This has decreased in size from 2010, and demonstrated macroscopic fat attenuation suggesting intrahepatic lipoma. No intrahepatic biliary ductal dilation. Gallbladder, spleen, pancreas and adrenal glands are unremarkable. Multifocal cortical scarring and parenchymal thinning about the left kidney. Subcentimeter hypodense 6 mm lesion of the interpolar right kidney suggest probable cyst. No renal calculi or obstructive uropathy. Bladder is unremarkable. Calcifications about the mid myometrial uterine body. Adnexa are unremarkable. The aorta and IVC are within normal limits. No pathologically enlarged lymph nodes. No bowel obstruction or focal bowel wall thickening. No ascites or mesenteric inflammatory changes. Terminal ileum and appendix appear unremarkable. Soft tissues are within normal limits. Imaged breast parenchyma is unremarkable. Bones appear intact. Severe facet arthrosis at L4-L5 with degenerative related grade 1 anterolisthesis L4 on L5. IMPRESSION: 1. No acute intra-abdominal or intrapelvic abnormality identified. 2. Multifocal parenchymal scarring with cortical thinning about the left kidney. 3. No renal calculi or obstructive uropathy. 4. Normal appendix. Electronically signed by: Eliseo Bowen M.D. 11/18/2017 5:33 PM Dictated Date/Time: 11/18/2017 5:26 PM
[2017-11-18] MEDS ORDERED: KETOROLAC TROMETHAMINE 30 MG/ML VIAL IV STA (17:55)
[2017-11-18] MEDS ORDERED: METOCLOPRAMIDE HCL INJ 5 MG/ML 2 ML VIAL IM STA (17:55)
[2017-11-18] MEDS ORDERED: PANTOprazole INJ 40 MG in SYRINGE 0 ML IV ONE (18:00)
[2017-11-18] MEDS ORDERED: METOCLOPRAMIDE HCL INJ 5 MG/ML 2 ML VIAL IV. STA (18:04)
[2017-11-18] MEDS ORDERED: CHLO1TAB19 PO (19:18)
[2017-11-18] MEDS ORDERED: PANT40TA PO (19:18)
[2017-11-18 19:47] VITALS: BP 196/103; PULSE 70; O2SAT 96
== END 2017-11-18 19:50 | disposition home or self-care (01) ==
LOC: C.EDB 14:45
DX: R06.6 Hiccough (principal); K22.4 Dyskinesia of esophagus; I10 Essential (primary) hypertension; Z88.1 Allergy status to other antibiotic agents